=== PATIENT | male | born 1955 | race Caucasian/White ===

== ENCOUNTER 2016-09-20 14:52 | Inpatient (IN) | payer OTHER ==
[2016-09-20 15:05] VITALS: BMI 25.6
--- NOTE | 2016-09-20 19:02 | PDOC ---
History of Present Illness - General Chief Complaint: Pain Stated Complaint: PCP SENT/constipation Time Seen by Provider: 09/20/16 18:11 History Source: [facility] Home Records, Other (staff member) - History of Present Illness Travel History: Yes Initial Comments: 09/20/16 19:02 61-year-old male with history of Down syndrome sent over for evaluation of constipation and to rule out obstruction. As per staff patient has been constipated for the past 2 weeks but has been moving his bowels every 3 days with use of laxatives and enemas. Patient's last LBM was 2 days ago which as per staff was large and solid. Timing/Duration: reports: intermittent Past History - Past Medical History Allergies/Adverse Reactions: Allergies Allergy/AdvReac Type Severity Reaction Status Date / Time guaifenesin [From Robitussin] Allergy Verified 09/20/16 15:04 lactulose Allergy Verified 09/20/16 15:04 levofloxacin [From Levaquin] Allergy Verified 09/20/16 15:04 Home Medications: Ambulatory Orders Levothyroxine [Synthroid -] 75 mcg PO DAILY 07/31/15 Ammonium Lactate Cream [Lac-Hydrin 12% Cream -] 1 applic TP DAILY 05/07/16 Quetiapine Fumarate [Seroquel -] 200 mg PO BID 05/08/16 Nutritional Supplement [Ensure] 1 can PO BID 08/29/16 Risperidone [Risperdal] 2 mg PO HS 08/29/16 Docusate Sodium [Colace -] 100 mg PO TID #90 capsule 09/06/16 Lactulose (Oral Use) [Cephulac -] 20 gm PO Q8H PRN #30 udc 09/06/16 Megestrol Acetate Oral Susp [Megace Oral Suspension -] 400 mg PO BID cup Tolterodine Tartrate LA [Detrol LA -] 4 mg PO DAILY #30 cap.sr.24h 09/15/16 Calcium Carbonate/Vitamin D3 [Oystercal-D 500 mg-400 Unit Tb] 1 each PO BID Cholecalciferol (Vitamin D3) [Vitamin D3] 1,000 unit PO BID 09/20/16 Linaclotide [Linzess] 145 mcg PO DAILY 09/20/16 Mometasone/Formoterol [Dulera 100 Mcg/5 Mcg Inhaler] 2 inh IH BID 09/20/16 Mupirocin Ointment [Bactroban] 1 applic TP PRN 09/20/16 Nortriptyline HCl [Pamelor -] 25 mg PO HS 09/20/16 Paroxetine HCl [Paxil] 40 mg PO DAILY 09/20/16 Anemia: No Asthma: No Cancer: No 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) CVA: No COPD: No CHF: No Dementia: No Diabetes: No GI Disorders: No Disorders: No HTN: No Hypercholesterolemia: No Liver Disease: No Seizures: No Thyroid Disease: Yes (HypoTHYROIDISM, [place]) - Surgical History Abdominal Surgery: No Appendectomy: No Cardiac Surgery: No Cholecystectomy: No Lung Surgery: No Neurologic Surgery: No Orthopedic Surgery: Yes (BONE MARROW RT HIP) - Immunization History Immunization Up to Date: Yes - Psycho/Social/Smoking Cessation Hx Anxiety: No Suicidal Ideation: No Smoking History: Never smoked Have you smoked in the past 12 months: No Information on smoking cessation initiated: No Hx Alcohol Use: No Drug/Substance Use Hx: No Substance Use Type: None Hx Substance Use Treatment: No Patient Lives Alone: No Lives with/in: residential Review of Systems - Review of Systems Able to Perform ROS?: Yes Constitutional: No: Symptoms Reported HEENTM: No: Symptoms Reported Respiratory: No: Symptoms reported Cardiac (ROS): No: Symptoms Reported ABD/GI: Yes: Constipated : No: Symptoms Reported Musculoskeletal: No: Symptoms Reported Integumentary: No: Symptoms Reported *Physical Exam - Vital Signs Last Vital Signs Temp Pulse Resp BP Pulse Ox 98.1 F 103 H 19 99/60 100 09/20/16 15:03 09/20/16 15:03 09/20/16 15:03 09/20/16 15:03 09/20/16 15:03 - Physical Exam General Appearance: Yes: Nourished, Appropriately Dressed. No: Apparent Distress HEENT: positive: EOMI, DONALD. negative: Pale Conjunctivae Neck: positive: Supple Respiratory/Chest: positive: Lungs Clear, Normal Breath Sounds. negative: Respiratory Distress, Accessory Muscle Use Cardiovascular: positive: Regular Rhythm, Regular Rate. negative: Murmur Gastrointestinal/Abdominal: positive: Normal Bowel Sounds, Soft, Distended. negative: Tenderness Musculoskeletal: negative: CVA Tenderness Extremity: positive: Normal Capillary Refill. negative: Pedal Edema Integumentary: positive: Normal Color, Warm, Moist Neurologic: positive: Alert, Motor Strength 5/5 ED Treatment Course - LABORATORY CBC & Chemistry Diagram: 09/20/16 22:00 09/20/16 22:00 - RADIOLOGY Radiology Studies Ordered: Category Date Time Status KUB (KID UR & BLAD) [RAD] Stat Radiology 09/20/16 18:44 Ordered Medical Decision Making - Medical Decision Making 09/20/16 19:11 Pt with history of Down syndrome and MRDD presents with constipation intermittently for the past 2 weeks. Patient here with soft abdomen bowel sounds present 4 with no distention. Patient ordered for a KUB 09/20/16 20:55 X-ray shows visit no definite interval change from September 11. Colonic fecal retention is noted. Several dilated closely grouped bowel loops are again seen within the left mid abdomen probably representing colon. The latter appearances of certain etiology possible to to localize fecal retention, focal obstruction or possible internal hernia case discussed with Dr. Cuba and will admit to [facility]. Patient also ordered for CT and admission labs.. 09/20/16 22:41 Laboratory Tests 09/20/16 09/20/16 22:00 22:00 WBC 9.2 D Hgb 12.1 Hct 37.5 MPV 8.8 Neutrophils % 74.5 INR 1.26 H *DC/Admit/Observation/Transfer Diagnosis at time of Disposition: Down syndrome, Obstruction of colon Constipation Qualifiers: Constipation type: unspecified constipation type Qualified Code(s): K59.00 - Constipation, unspecified - Discharge Dispostion Admit: Yes
--- NOTE | 2016-09-20 20:48 | PDOC ---
*Physical Exam - Vital Signs Last Vital Signs Temp Pulse Resp BP Pulse Ox 98.1 F 103 H 19 99/60 100 09/20/16 15:03 09/20/16 15:03 09/20/16 15:03 09/20/16 15:03 09/20/16 15:03 ED Treatment Course - LABORATORY CBC & Chemistry Diagram: 09/21/16 06:00 09/21/16 06:00 Medical Decision Making - Medical Decision Making 09/20/16 20:48 Pt seen by the Advanced Practice Provider under my direct supervision Ancillary studies reviewed I agree with plan as outlined by the Advanced Practice Provider GLORIA Schreiber *DC/Admit/Observation/Transfer Diagnosis at time of Disposition: Down syndrome, Constipation, Obstruction of colon
[2016-09-20] MEDS ORDERED: risperiDONE 2 MG TABLET PO ONE (21:24)
[2016-09-20] MEDS ORDERED: risperiDONE 0.5 MG TABLET (FP) ONE (21:25)
[2016-09-20] MEDS ORDERED: QUEtiapine FUMARATE 100 MG TABLET (FP) ONE (21:25)
[2016-09-20] MEDS ORDERED: QUEtiapine FUMARATE 200 MG TABLET PO ONE (21:25)
[2016-09-20 22:14] LABS: BASOPHIL 0.6 % (0-2.0); EOSINOPHIL 0.9 % (0-4.5); MCH 30.7 pg (25.7-33.7); MCHC 32.4 g/dl (32.0-35.9); MEAN CELL VOLUME 94.7 fl (80-96); MEAN PLT VOLUME 8.8 fl (7.5-11.1); NEUTROPHILS 74.5 % (42.8-82.8); PLATELET COUNT 202 K/MM3 (134-434); RDW 14.7 % (11.9-15.9); WHITE BLOOD COUNT 9.2 K/mm3 (4.0-10.0)
[2016-09-20 22:35] LABS: INR 1.26 (0.82-1.09); PROTHROMBIN TIME (PATIENT) 13.9 SEC (9.98-11.88)
[2016-09-20 22:47] LABS: ALBUMIN 3.2 g/dl (3.4-5.0); ANION GAP 7 (8-16); BILIRUBIN,TOTAL 0.3 mg/dL (0.2-1.0); CALCIUM 9.6 mg/dL (8.5-10.1); CO2 25 mmol/L (21-32); CREATININE 0.9 mg/dL (0.7-1.3); GLUCOSE,RANDOM 90 mg/dL (74-106); SGPT/ALT 31 U/L (12-78); TOT PROT 6.7 g/dl (6.4-8.2)
[2016-09-20 22:50] LABS: ALK PHOS 65 U/L (45-117); SGOT/AST 23 U/L (15-37)
[2016-09-20] MEDS ORDERED: LORazepam 1 MG TABLET PO ONE (23:29)
[2016-09-21] MEDS ORDERED: LORAZEPAM CARPU-JECT 2 MG/ML DISP.SYRIN ONE (00:38)
[2016-09-21] MEDS ORDERED: LORAZEPAM CARPU-JECT 2 MG/ML DISP.SYRIN IVPUSH ONE (00:45)
[2016-09-21] MEDS ORDERED: LACTULOSE 20 GM/30 ML UDC (FOR ORAL USE ONLY) PO PRN ×2 (01:42→16:39)
--- NOTE | 2016-09-21 01:53 | HP ---
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) - Smoking History Smoking history: Never smoked Have you smoked in the past 12 months: No - Alcohol/Substance Use Hx Alcohol Use: No Home Medications - Allergies Allergies/Adverse Reactions: Allergies Allergy/AdvReac Type Severity Reaction Status Date / Time guaifenesin [From Robitussin] Allergy Verified 09/20/16 15:04 lactulose Allergy Verified 09/20/16 15:04 levofloxacin [From Levaquin] Allergy Verified 09/20/16 15:04 - Home Medications Home Medications: Ambulatory Orders Levothyroxine [Synthroid -] 75 mcg PO DAILY 07/31/15 Ammonium Lactate Cream [Lac-Hydrin 12% Cream -] 1 applic TP DAILY 05/07/16 Quetiapine Fumarate [Seroquel -] 200 mg PO BID 05/08/16 Nutritional Supplement [Ensure] 1 can PO BID 08/29/16 Risperidone [Risperdal] 2 mg PO HS 08/29/16 Docusate Sodium [Colace -] 100 mg PO TID #90 capsule 09/06/16 Lactulose (Oral Use) [Cephulac -] 20 gm PO Q8H PRN #30 udc 09/06/16 Megestrol Acetate Oral Susp [Megace Oral Suspension -] 400 mg PO BID cup Tolterodine Tartrate LA [Detrol LA -] 4 mg PO DAILY #30 cap.sr.24h 09/15/16 Calcium Carbonate/Vitamin D3 [Oystercal-D 500 mg-400 Unit Tb] 1 each PO BID Cholecalciferol (Vitamin D3) [Vitamin D3] 1,000 unit PO BID 09/20/16 Linaclotide [Linzess] 145 mcg PO DAILY 09/20/16 Mometasone/Formoterol [Dulera 100 Mcg/5 Mcg Inhaler] 2 inh IH BID 09/20/16 Mupirocin Ointment [Bactroban] 1 applic TP PRN 09/20/16 Nortriptyline HCl [Pamelor -] 25 mg PO HS 09/20/16 Paroxetine HCl [Paxil] 40 mg PO DAILY 09/20/16 Physical Examination Vital Signs: Vital Signs Temperature 98.1 F 09/20/16 15:03 Pulse Rate 88 09/20/16 19:00 Respiratory Rate 20 09/20/16 19:00 Blood Pressure 100/50 09/20/16 19:00 O2 Sat by Pulse Oximetry (%) 100 09/20/16 19:00
[2016-09-21 07:43] LABS: BASOPHIL 0.8 % (0-2.0); EOSINOPHIL 1.5 % (0-4.5); MCH 31.7 pg (25.7-33.7); MCHC 33.4 g/dl (32.0-35.9); MEAN CELL VOLUME 94.8 fl (80-96); MEAN PLT VOLUME 9.1 fl (7.5-11.1); PLATELET COUNT 150 K/MM3 (134-434); RDW 14.8 % (11.9-15.9); WHITE BLOOD COUNT 4.7 K/mm3 (4.0-10.0)
[2016-09-21] MEDS: LEVOTHYROXINE NA 75 MCG TABLET (FP) PO SCH (07:45)
[2016-09-21] MEDS: DOCUSATE SODIUM 100 MG CAPSULE (FP) PO SCH ×3 (07:45→20:59)
[2016-09-21 08:23] LABS: ALBUMIN 2.6 g/dl (3.4-5.0); ANION GAP 9 (8-16); CALCIUM 8.9 mg/dL (8.5-10.1); CO2 23 mmol/L (21-32); CREATININE 0.7 mg/dL (0.7-1.3); GLUCOSE,RANDOM 84 mg/dL (74-106); SGPT/ALT 28 U/L (12-78)
[2016-09-21 08:25] LABS: ALK PHOS 53 U/L (45-117); BILIRUBIN,TOTAL 0.3 mg/dL (0.2-1.0); TOT PROT 5.5 g/dl (6.4-8.2)
[2016-09-21 08:31] LABS: SGOT/AST 23 U/L (15-37)
[2016-09-21] MEDS ORDERED: NUTRITIONAL SUPPLEMENT PO SCH (10:00)
[2016-09-21] MEDS ORDERED: TOLTERODINE TARTRATE LA 4 MG CAP.SR.24H (FP) PO SCH (10:00)
[2016-09-21] MEDS ORDERED: PATIENT'S OWN MEDICATION (NON-FORMULARY) (Mometasone/Formoterol [Dulera 100 Mcg/5 Mcg Inha IH SCH (10:00)
[2016-09-21] MEDS: PARoxetine HCL 20 MG TABLET (FP) PO SCH (10:22)
[2016-09-21] MEDS: DEXTROSE 5%-0.45% SALINE 1,000 ML IV SCH (10:22)
[2016-09-21] MEDS: MEGESTROL ACETATE 400 MG/10 ML UNIT DOSE CUP PO SCH ×2 (10:22→21:00)
[2016-09-21] MEDS: HEPARIN NA (PORCINE) 5,000 UNITS/ML 1ML VIAL SQ SCH ×2 (10:22→21:50)
[2016-09-21] MEDS: QUEtiapine FUMARATE 200 MG TABLET PO SCH ×2 (10:23→21:49)
--- NOTE | 2016-09-21 12:02 | CONSULT ---
Consult Consult Specialty:: Surgery Reason for Consultation:: abdominal pain, r/o SBO - History of Present Illness Chief Complaint: abdominal pain History of Present Illness: 61-year-old male with history of Down syndrome sent over for evaluation of constipation and to rule out obstruction. As per staff patient has been constipated for the past 2 weeks but has been moving his bowels every 3 days with use of laxatives and enemas. Patient's last LBM was 2 days ago which as per staff was large and solid. 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) - Past Surgical History Past Surgical History: Yes: Hernia Repair (umbilical) - Alcohol/Substance Use Hx Alcohol Use: No - Smoking History Smoking history: Never smoked Have you smoked in the past 12 months: No - Social History Usual Living Arrangement: [facility] Home Medications - Allergies Allergies/Adverse Reactions: Allergies Allergy/AdvReac Type Severity Reaction Status Date / Time guaifenesin [From Robitussin] Allergy Verified 09/20/16 15:04 lactulose Allergy Verified 09/20/16 15:04 levofloxacin [From Levaquin] Allergy Verified 09/20/16 15:04 - Home Medications Home Medications: Ambulatory Orders Levothyroxine [Synthroid -] 75 mcg PO DAILY 07/31/15 Ammonium Lactate Cream [Lac-Hydrin 12% Cream -] 1 applic TP DAILY 05/07/16 Quetiapine Fumarate [Seroquel -] 200 mg PO BID 05/08/16 Nutritional Supplement [Ensure] 1 can PO BID 08/29/16 Risperidone [Risperdal] 2 mg PO HS 08/29/16 Docusate Sodium [Colace -] 100 mg PO TID #90 capsule 09/06/16 Lactulose (Oral Use) [Cephulac -] 20 gm PO Q8H PRN #30 udc 09/06/16 Megestrol Acetate Oral Susp [Megace Oral Suspension -] 400 mg PO BID cup Tolterodine Tartrate LA [Detrol LA -] 4 mg PO DAILY #30 cap.sr.24h 09/15/16 Calcium Carbonate/Vitamin D3 [Oystercal-D 500 mg-400 Unit Tb] 1 each PO BID Cholecalciferol (Vitamin D3) [Vitamin D3] 1,000 unit PO BID 09/20/16 Linaclotide [Linzess] 145 mcg PO DAILY 09/20/16 Mometasone/Formoterol [Dulera 100 Mcg/5 Mcg Inhaler] 2 inh IH BID 09/20/16 Mupirocin Ointment [Bactroban] 1 applic TP PRN 09/20/16 Nortriptyline HCl [Pamelor -] 25 mg PO HS 09/20/16 Paroxetine HCl [Paxil] 40 mg PO DAILY 09/20/16 Review of Systems Unable to obtain ROS, reason: severe mental retardation Physical Exam Vital Signs: Vital Signs Temperature 98.1 F 09/21/16 09:00 Pulse Rate 84 09/21/16 09:00 Respiratory Rate 16 09/21/16 09:00 Blood Pressure 132/62 09/21/16 09:00 O2 Sat by Pulse Oximetry (%) 100 09/21/16 01:46 Constitutional: Yes: No Distress HENT: Yes: Normocephalic Neck: Yes: Supple Cardiovascular: Yes: Regular Rate and Rhythm Respiratory: Yes: CTA Bilaterally Gastrointestinal: Yes: Soft, Other (periumibilical scar well-healed) Labs: CBC, BMP 09/21/16 06:00 09/21/16 06:00 Imaging - Results Cat Scan: Report Reviewed (no SBO), Image Reviewed Problem List - Problems (1) Constipation Code(s): K59.00 - CONSTIPATION, UNSPECIFIED Qualifiers: Constipation type: unspecified constipation type Qualified Code(s): K59.00 - Constipation, unspecified (2) Abdominal pain Code(s): R10.9 - UNSPECIFIED ABDOMINAL PAIN Assessment/Plan Patient has no evidence of bowel obstruction based on clinical and radiologic findings No surgical intervention necessary at this time Agree with GI consult laxatives for constipation and/or enemas for severe constipation
--- NOTE | 2016-09-21 16:26 | CONS ---
DATE OF CONSULTATION: DATE OF DICTATION: 09/21/2016 HISTORY OF PRESENT ILLNESS: Patient was examined earlier this week with urinary incontinence. He is a 61-year-old male with history of Down syndrome and urinary incontinence. Patient also has history of chronic constipation. He has been given laxatives and enemas once or twice a week to get bowel movement. Patient has undergone umbilical hernia surgery repair. A CAT scan of the patient's abdomen and pelvis revealed a moderately distended urinary bladder. There also was a 3.3-cm left renal cyst. There was no evidence of bowel obstruction or other pathology in the abdomen. LABORATORY DATA: The patient's laboratory data revealed a white count of 9200, hemoglobin and hematocrit 12.1/37.5. His platelets were 202. PT and INR were within normal limits with an INR of 1.26. The patient's BUN and creatinine were 28/0.9; again, the patient is afebrile. PHYSICAL EXAMINATION: His pulse is regular. He is uncooperative and sitting in the hallway. Examination of the lower abdomen revealed a distended bladder. The patient refuses to wear a diaper and the sheets are wet. RECOMMENDATION: Would recommend a urodynamic evaluation as well as a cystoscopy if a consent is obtainable. Will follow with you. Maya [id number]
[2016-09-21] MEDS: SODIUM PHOSPHATE/NA BIPHOS 133 ML ENEMA PR SCH ×2 (19:09→21:05)
[2016-09-21] MEDS: risperiDONE 2 MG TABLET PO SCH (21:49)
[2016-09-22] MEDS: DOCUSATE SODIUM 100 MG CAPSULE (FP) PO SCH (07:08)
[2016-09-22] MEDS: LEVOTHYROXINE NA 75 MCG TABLET (FP) PO SCH (07:10)
[2016-09-22] MEDS: SODIUM PHOSPHATE/NA BIPHOS 133 ML ENEMA PR SCH ×2 (08:00→11:01)
[2016-09-22] MEDS: DEXTROSE 5%-0.45% SALINE 1,000 ML IV SCH (08:18)
[2016-09-22] MEDS: PARoxetine HCL 20 MG TABLET (FP) PO SCH (11:00)
[2016-09-22] MEDS: MEGESTROL ACETATE 400 MG/10 ML UNIT DOSE CUP PO SCH ×2 (11:00→21:07)
[2016-09-22] MEDS: HEPARIN NA (PORCINE) 5,000 UNITS/ML 1ML VIAL SQ SCH ×2 (11:01→21:06)
[2016-09-22] MEDS: QUEtiapine FUMARATE 200 MG TABLET PO SCH ×2 (11:03→21:07)
--- NOTE | 2016-09-22 11:40 | CONSULT ---
Consult Consult Specialty:: GI Referred by:: Dr Cuba Reason for Consultation:: Constipation - History of Present Illness Chief Complaint: Patient with severe MR sent from facility for evauation of constipation with possible obstruction History of Present Illness: 61 M with severe MR seen last week in the hospital for the same problem. Treated with lactulose and enemas with success. Now back with ? obstruction. 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) - Past Surgical History Past Surgical History: Yes: Hernia Repair (umbilical) - Alcohol/Substance Use Hx Alcohol Use: No - Smoking History Smoking history: Never smoked Have you smoked in the past 12 months: No - Social History Usual Living Arrangement: [facility] Home Medications - Allergies Allergies/Adverse Reactions: Allergies Allergy/AdvReac Type Severity Reaction Status Date / Time guaifenesin [From Robitussin] Allergy Verified 09/20/16 15:04 lactulose Allergy Verified 09/20/16 15:04 levofloxacin [From Levaquin] Allergy Verified 09/20/16 15:04 - Home Medications Home Medications: Ambulatory Orders Levothyroxine [Synthroid -] 75 mcg PO DAILY 07/31/15 Ammonium Lactate Cream [Lac-Hydrin 12% Cream -] 1 applic TP DAILY 05/07/16 Quetiapine Fumarate [Seroquel -] 200 mg PO BID 05/08/16 Nutritional Supplement [Ensure] 1 can PO BID 08/29/16 Risperidone [Risperdal] 2 mg PO HS 08/29/16 Docusate Sodium [Colace -] 100 mg PO TID #90 capsule 09/06/16 Lactulose (Oral Use) [Cephulac -] 20 gm PO Q8H PRN #30 udc 09/06/16 Megestrol Acetate Oral Susp [Megace Oral Suspension -] 400 mg PO BID cup Tolterodine Tartrate LA [Detrol LA -] 4 mg PO DAILY #30 cap.sr.24h 09/15/16 Calcium Carbonate/Vitamin D3 [Oystercal-D 500 mg-400 Unit Tb] 1 each PO BID Cholecalciferol (Vitamin D3) [Vitamin D3] 1,000 unit PO BID 09/20/16 Linaclotide [Linzess] 145 mcg PO DAILY 09/20/16 Mometasone/Formoterol [Dulera 100 Mcg/5 Mcg Inhaler] 2 inh IH BID 09/20/16 Mupirocin Ointment [Bactroban] 1 applic TP PRN 09/20/16 Nortriptyline HCl [Pamelor -] 25 mg PO HS 09/20/16 Paroxetine HCl [Paxil] 40 mg PO DAILY 09/20/16 Physical Exam-GI Vital Signs: Vital Signs Temperature 97.3 F L 09/22/16 06:00 Pulse Rate 110 H 09/22/16 06:00 Respiratory Rate 18 09/22/16 06:00 Blood Pressure 114/57 09/22/16 06:00 O2 Sat by Pulse Oximetry (%) 100 09/21/16 09:00 Constitutional: Yes: Well Nourished, Mild Distress HENT: Yes: Normocephalic Neck: Yes: Supple Cardiovascular: Yes: Regular Rate and Rhythm Respiratory: Yes: CTA Bilaterally Gastrointestinal Inspection: Yes: Distention (mild) ...Auscultate: Yes: Normoactive Bowel Sounds ...Palpate: Yes: Soft ...Percussion: Yes: Tympanitic Labs: CBC, BMP 09/21/16 06:00 09/21/16 06:00 INR, PTT INR 1.26 (0.82-1.09) H 09/20/16 22:00 Imaging - Results Cat Scan: Report Reviewed (CT done yesterday shows no obstruction. There is no mention of retained stool.) Assessment/Plan Modify bowel regimen. Nurse states passage of small amount of stool. Likely not much stool in colon at this time. There is no evidence of obstruction, either clinically or radiographically. Can likely discharge back to [facility] barring unforeseen circumstances. Continue bowel regimen as ordered.
[2016-09-22] MEDS ORDERED: BISACODYL 5 MG TABLET.DR (FP) PO PRN (11:48)
[2016-09-22] MEDS ORDERED: SODIUM PHOSPHATE/NA BIPHOS 133 ML ENEMA PR ONE (14:15)
[2016-09-22] MEDS ORDERED: PT OWN MED DRAWER 7, Y5N ONE ×2 (18:27→20:56)
--- NOTE | 2016-09-22 19:36 | PN ---
Progress Note, Physician - Current Medication List Current Medications: Active Medications Bisacodyl (Dulcolax -) 5 mg PO DAILY PRN PRN Reason: CONSTIPATION Heparin Sodium (Porcine) (Heparin -) 5,000 unit SQ BID [facility] Last Admin: 09/22/16 11:01 Dose: 5,000 unit Dextrose/Sodium Chloride (D5-1/2ns -) 1,000 mls @ 75 mls/hr IV ASDIR [facility] Last Admin: 09/22/16 08:18 Dose: Not Given Lactulose (Cephulac (Oral Use)) 20 gm PO QID PRN PRN Reason: CONSTIPATION Levothyroxine Sodium (Synthroid -) 75 mcg PO DAILY@0700 [facility] Last Admin: 09/22/16 07:10 Dose: 75 mcg Megestrol Acetate (Megace Oral Suspension -) 400 mg PO BID [facility] Last Admin: 09/22/16 11:00 Dose: 400 mg Non-Formulary Medication (Linaclotide [Linzess]) 145 mcg PO DAILY [facility] Non-Formulary Medication (Mometasone/Formoterol [Dulera 100 Mcg/5 Mcg Inhaler]) 2 inh IH BID [facility] Paroxetine HCl (Paxil -) 40 mg PO DAILY [facility] Last Admin: 09/22/16 11:00 Dose: 40 mg Quetiapine Fumarate (Seroquel -) 200 mg PO BID [facility] Last Admin: 09/22/16 11:03 Dose: 200 mg Risperidone (Risperdal -) 2 mg PO HS [facility] Last Admin: 09/21/16 21:49 Dose: 2 mg - Objective Vital Signs: Vital Signs Temperature 97.8 F 09/22/16 17:04 Pulse Rate 107 H 09/22/16 17:04 Respiratory Rate 18 09/22/16 17:04 Blood Pressure 102/64 09/22/16 17:04 O2 Sat by Pulse Oximetry (%) 100 09/21/16 09:00 Labs: CBC, BMP 09/21/16 06:00 09/21/16 06:00 INR, PTT INR 1.26 (0.82-1.09) H 09/20/16 22:00
[2016-09-22] MEDS: risperiDONE 2 MG TABLET PO SCH (21:07)
[2016-09-23] MEDS: DEXTROSE 5%-0.45% SALINE 1,000 ML IV SCH (04:50)
[2016-09-23] MEDS: LEVOTHYROXINE NA 75 MCG TABLET (FP) PO SCH (06:21)
[2016-09-23] MEDS: PARoxetine HCL 20 MG TABLET (FP) PO SCH (10:03)
[2016-09-23] MEDS: MEGESTROL ACETATE 400 MG/10 ML UNIT DOSE CUP PO SCH ×2 (10:03→22:15)
[2016-09-23] MEDS: QUEtiapine FUMARATE 200 MG TABLET PO SCH ×2 (10:03→21:39)
[2016-09-23] MEDS: HEPARIN NA (PORCINE) 5,000 UNITS/ML 1ML VIAL SQ SCH ×2 (10:04→21:37)
--- NOTE | 2016-09-23 16:13 | PN ---
Progress Note, Physician History of Present Illness: No new change - Current Medication List Current Medications: Active Medications Bisacodyl (Dulcolax -) 5 mg PO DAILY PRN PRN Reason: CONSTIPATION Heparin Sodium (Porcine) (Heparin -) 5,000 unit SQ BID [facility] Last Admin: 09/23/16 10:04 Dose: Not Given Lactulose (Cephulac (Oral Use)) 20 gm PO QID PRN PRN Reason: CONSTIPATION Levothyroxine Sodium (Synthroid -) 75 mcg PO DAILY@0700 [facility] Last Admin: 09/23/16 06:21 Dose: 75 mcg Megestrol Acetate (Megace Oral Suspension -) 400 mg PO BID [facility] Last Admin: 09/23/16 10:03 Dose: Not Given Non-Formulary Medication (Linaclotide [Linzess]) 145 mcg PO DAILY [facility] Non-Formulary Medication (Mometasone/Formoterol [Dulera 100 Mcg/5 Mcg Inhaler]) 2 inh IH BID [facility] Paroxetine HCl (Paxil -) 40 mg PO DAILY [facility] Last Admin: 09/23/16 10:03 Dose: Not Given Quetiapine Fumarate (Seroquel -) 200 mg PO BID [facility] Last Admin: 09/23/16 10:03 Dose: Not Given Risperidone (Risperdal -) 2 mg PO [facility] - Objective Vital Signs: Vital Signs Temperature 97.6 F 09/23/16 15:02 Pulse Rate 104 H 09/23/16 15:02 Respiratory Rate 18 09/23/16 15:02 Blood Pressure 104/75 09/23/16 15:02 O2 Sat by Pulse Oximetry (%) 100 09/23/16 09:00 Constitutional: Yes: No Distress, Pallor Neck: Yes: Supple Cardiovascular: Yes: WNL, Regular Rate and Rhythm Respiratory: Yes: WNL, Regular, CTA Bilaterally Gastrointestinal: Yes: WNL, Normal Bowel Sounds, Soft Labs: CBC, BMP 09/21/16 06:00 09/21/16 06:00 INR, PTT INR 1.26 (0.82-1.09) H 09/20/16 22:00 Problem List - Problems (1) Constipation Assessment/Plan: Cont bowel regimen w/ lactulose/linzess/dulcolax Enemas prn DC planning Code(s): K59.00 - CONSTIPATION, UNSPECIFIED Qualifiers: Constipation type: unspecified constipation type Qualified Code(s): K59.00 - Constipation, unspecified (2) Down syndrome Assessment/Plan: Pt may need higher level of care Code(s): Q90.9 - DOWN SYNDROME, UNSPECIFIED (3) Hypothyroidism Assessment/Plan: Will increase synthroid and repeat TSH in 6 weeks Code(s): E03.9 - HYPOTHYROIDISM, UNSPECIFIED Qualifiers: Hypothyroidism type: unspecified Qualified Code(s): E03.9 - Hypothyroidism, unspecified (4) Unsteady gait Code(s): R26.81 - UNSTEADINESS ON FEET Assessment/Plan 1. Urinary retention As per uro pt needs urodynamic eval/cystoscopy Will need to get consent
[2016-09-23] MEDS ORDERED: LORAZEPAM CARPU-JECT 2 MG/ML DISP.SYRIN ONE (19:39)
[2016-09-23] MEDS ORDERED: LORAZEPAM CARPU-JECT 2 MG/ML DISP.SYRIN IM STA (19:46)
[2016-09-23] MEDS ORDERED: PT OWN MED DRAWER 7, Y5N ONE (20:18)
[2016-09-23] MEDS: risperiDONE 1 MG TABLET (FP) PO SCH (21:37)
[2016-09-23] MEDS: PATIENT'S OWN MEDICATION (NON-FORMULARY) (Linaclotide [Linzess] 145 MCG) PO SCH (22:21)
[2016-09-24] MEDS: LEVOTHYROXINE NA 100 MCG TABLET (FP) PO SCH (06:47)
[2016-09-24] MEDS ORDERED: PT OWN MED DRAWER 7, Y5N ONE (09:08)
[2016-09-24] MEDS: PARoxetine HCL 20 MG TABLET (FP) PO SCH (09:10)
[2016-09-24] MEDS: HEPARIN NA (PORCINE) 5,000 UNITS/ML 1ML VIAL SQ SCH ×2 (09:10→21:33)
[2016-09-24] MEDS: MEGESTROL ACETATE 400 MG/10 ML UNIT DOSE CUP PO SCH ×2 (09:10→21:32)
[2016-09-24] MEDS: PATIENT'S OWN MEDICATION (NON-FORMULARY) (Linaclotide [Linzess] 145 MCG) PO SCH (09:11)
[2016-09-24] MEDS: QUEtiapine FUMARATE 200 MG TABLET PO SCH ×2 (09:12→21:33)
--- NOTE | 2016-09-24 20:10 | PN ---
Progress Note, Physician History of Present Illness: Pt was very agitated last pm and needed ativan - Current Medication List Current Medications: Active Medications Bisacodyl (Dulcolax -) 5 mg PO DAILY PRN PRN Reason: CONSTIPATION Last Admin: 09/24/16 09:10 Dose: 5 mg Heparin Sodium (Porcine) (Heparin -) 5,000 unit SQ BID [facility] Last Admin: 09/24/16 09:10 Dose: 5,000 unit Lactulose (Cephulac (Oral Use)) 20 gm PO QID PRN PRN Reason: CONSTIPATION Levothyroxine Sodium (Synthroid -) 100 mcg PO DAILY@0700 [facility] Last Admin: 09/24/16 06:47 Dose: Not Given Megestrol Acetate (Megace Oral Suspension -) 400 mg PO BID [facility] Last Admin: 09/24/16 09:10 Dose: 400 mg Non-Formulary Medication (Linaclotide [Linzess]) 145 mcg PO DAILY [facility] Last Admin: 09/24/16 09:11 Dose: 145 mcg Non-Formulary Medication (Mometasone/Formoterol [Dulera 100 Mcg/5 Mcg Inhaler]) 2 inh IH BID [facility] Paroxetine HCl (Paxil -) 40 mg PO DAILY [facility] Last Admin: 09/24/16 09:10 Dose: 40 mg Quetiapine Fumarate (Seroquel -) 200 mg PO BID [facility] Last Admin: 09/24/16 09:12 Dose: 200 mg Risperidone (Risperdal -) 2 mg PO HS [facility] Last Admin: 09/23/16 21:37 Dose: 2 mg - Objective Vital Signs: Vital Signs Temperature 97.7 F 09/24/16 09:00 Pulse Rate 110 H 09/24/16 09:00 Respiratory Rate 18 09/24/16 09:00 Blood Pressure 115/60 09/24/16 09:00 O2 Sat by Pulse Oximetry (%) 100 09/24/16 09:00 Constitutional: Yes: No Distress, Pallor Cardiovascular: Yes: WNL, Regular Rate and Rhythm Respiratory: Yes: WNL, Regular, CTA Bilaterally Gastrointestinal: Yes: WNL, Normal Bowel Sounds, Soft Labs: CBC, BMP 09/21/16 06:00 09/21/16 06:00 INR, PTT INR 1.26 (0.82-1.09) H 12/29/16 22:00 Problem List - Problems (1) Constipation Assessment/Plan: Cont bowel regimen w/ lactulose/linzess/dulcolax Enemas prn DC planning for am Code(s): K59.00 - CONSTIPATION, UNSPECIFIED Qualifiers: Constipation type: unspecified constipation type Qualified Code(s): K59.00 - Constipation, unspecified (2) Down syndrome Assessment/Plan: Pt may need higher level of care Code(s): Q90.9 - DOWN SYNDROME, UNSPECIFIED (3) Hypothyroidism Assessment/Plan: Synthroid dose increased Check TSH level in 6 weeks Code(s): E03.9 - HYPOTHYROIDISM, UNSPECIFIED Qualifiers: Hypothyroidism type: unspecified Qualified Code(s): E03.9 - Hypothyroidism, unspecified (4) Unsteady gait Code(s): R26.81 - UNSTEADINESS ON FEET Assessment/Plan 1. Urinary retention As per uro pt needs urodynamic eval/cystoscopy Will need to get consent Wc can be done as outpt
[2016-09-24] MEDS: risperiDONE 1 MG TABLET (FP) PO SCH (21:33)
[2016-09-25] MEDS: LEVOTHYROXINE NA 100 MCG TABLET (FP) PO SCH (06:49)
--- NOTE | 2016-09-25 07:52 | PN ---
Progress Note (short form) - Note Progress Note: Patient clinically unchanged Nurse states bowel habits have normalized Can discharge from GI POV To maintain bowel regimen as opt
[2016-09-25 11:00] VITALS: BP 111/60; PULSE 100
[2016-09-25] MEDS: PARoxetine HCL 20 MG TABLET (FP) PO SCH (11:11)
[2016-09-25] MEDS: MEGESTROL ACETATE 400 MG/10 ML UNIT DOSE CUP PO SCH (11:11)
[2016-09-25] MEDS: HEPARIN NA (PORCINE) 5,000 UNITS/ML 1ML VIAL SQ SCH (11:11)
[2016-09-25] MEDS: PATIENT'S OWN MEDICATION (NON-FORMULARY) (Linaclotide [Linzess] 145 MCG) PO SCH (11:11)
[2016-09-25] MEDS: QUEtiapine FUMARATE 200 MG TABLET PO SCH (11:11)
[2016-09-25 14:19] VITALS: TEMP 98.8
[2016-09-25] MEDS ORDERED: PT OWN MED DRAWER 7, Y5N ONE (16:57)
== END 2016-09-25 17:37 | disposition home or self-care (01) | DRG 392 ==
LOC: JER 14:52 → JERBED 21:00 → UNDOADMIN 22:11 → JERBED 22:11 → J8W 09-21 01:42 → JERBED 09-21 01:42
PROVIDERS: ADMIT Internal Medicine; ATTEND Internal Medicine
DX: K59.00 Constipation, unspecified (principal); Q90.9 Down syndrome, unspecified; F71 Moderate intellectual disabilities; E03.9 Hypothyroidism, unspecified; R26.81 Unsteadiness on feet; R33.9 Retention of urine, unspecified; R10.9 Unspecified abdominal pain
CPT/HCPCS: 36415; 74000-TC; 74176-TC; 80053; 82378; 84443; 85025; 85610; 86850; 86900; 86901; 97001-GP; 99284-25; J1644; J2794

== ENCOUNTER 2016-09-27 17:46 | Emergency (ER) | payer OTHER ==
[2016-09-27 18:12] VITALS: TEMP 97.5; BMI 27.8
--- NOTE | 2016-09-27 20:28 | PDOC ---
History of Present Illness - General Chief Complaint: Weakness Stated Complaint: WEAKNESS Time Seen by Provider: 09/27/16 18:14 History Source: Care Provider - History of Present Illness Initial Comments: 09/28/16 02:09 Patient was seen and evaluated by me immediately upon arrival. This H&P is being recorded post discharge. Patient's 61-year-old patient's with advanced mental retardation, multiple comorbidities referred and I will do that to the ER for inability to walk and lower extremity muscle weakness due to prolonged immobilization. Patient recently been seen and evaluated in this hospital for suspected SBO and was discharged 48 hours prior to current visit. No trauma is reported. No fever or chills or endorsed by the pathology laboratory director. Patient tolerates by mouth. Patient is unable to cooperate with detailed H&P at this time. REVIEW OF SYSTEMS Unable to obtain EXAMINATION CONSTITUTIONAL: Alert and awake, nonverbal, follows simple commands, in no apparent distress HEAD: Normocephalic; atraumatic EYES: PERRL; ENMT: External appears normal; NECK: Supple; non-tender; no cervical lymphadenopathy CARD: Normal S1, S2; no murmurs, rubs, or gallops RESP: Normal chest excursion with respiration; breath sounds clear and equal bilaterally; no wheezes, rhonchi, or rales ABD: Soft, non-distended; non-tender; no palpable organomegaly, no palpable hernias EXT: Normal ROM in all four extremities; non-tender to palpation; distal pulses intact; gait-stable SKIN: Warm, dry, no rash NEURO: Awake and alert, moving all tremors symmetrically, Past History - Past Medical History Allergies/Adverse Reactions: Allergies Allergy/AdvReac Type Severity Reaction Status Date / Time guaifenesin [From Robitussin] Allergy Verified 09/27/16 18:09 lactulose Allergy Verified 09/27/16 18:09 levofloxacin [From Levaquin] Allergy Verified 09/27/16 18:09 Home Medications: Ambulatory Orders Levothyroxine [Synthroid -] 75 mcg PO DAILY 07/31/15 Ammonium Lactate Cream [Lac-Hydrin 12% Cream -] 1 applic TP DAILY 05/07/16 Quetiapine Fumarate [Seroquel -] 200 mg PO BID 05/08/16 Nutritional Supplement [Ensure] 1 can PO BID 08/29/16 Risperidone [Risperdal] 2 mg PO HS 08/29/16 Megestrol Acetate Oral Susp [Megace Oral Suspension -] 400 mg PO BID cup Calcium Carbonate/Vitamin D3 [Oystercal-D 500 mg-400 Unit Tb] 1 each PO BID Cholecalciferol (Vitamin D3) [Vitamin D3] 1,000 unit PO BID 09/20/16 Linaclotide [Linzess] 145 mcg PO DAILY 09/20/16 Mometasone/Formoterol [Dulera 100 Mcg/5 Mcg Inhaler] 2 inh IH BID 09/20/16 Mupirocin Ointment [Bactroban 2% Ointment -] 1 applic TP PRN 09/20/16 Nortriptyline HCl [Pamelor -] 25 mg PO HS 09/20/16 Paroxetine HCl [Paxil] 40 mg PO DAILY 09/20/16 Folic Acid 1 mg PO DAILY 09/27/16 Anemia: No 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) Thyroid Disease: Yes (HypoTHYROIDISM, KOLTON) - Surgical History Orthopedic Surgery: Yes (BONE MARROW RT HIP) - Immunization History Immunization Up to Date: Yes - Psycho/Social/Smoking Cessation Hx Anxiety: No Suicidal Ideation: No Smoking History: Never smoked Have you smoked in the past 12 months: No Hx Alcohol Use: No Drug/Substance Use Hx: No Substance Use Type: None Hx Substance Use Treatment: No *Physical Exam - Vital Signs Last Vital Signs Temp Pulse Resp BP Pulse Ox 97.5 F L 80 18 134/100 99 09/27/16 18:09 09/27/16 18:09 09/27/16 18:09 09/27/16 18:09 09/27/16 18:09 Medical Decision Making - Medical Decision Making 09/28/16 02:13 Patient is a 61-year-old male with history of advanced mental retardation who presented with lower extremity weakness and inability to ambulate at the facility where he resides. In the ER, patient is able to follow commands and ambulate without difficulty with encouragement from the M.D. No acute issues are present. I discussed the case with the RN caring for the patient. Will recommend in-house physical therapy. Will discharge. *DC/Admit/Observation/Transfer Diagnosis at time of Disposition: Weakness - Referrals Referrals: pmd, as needed [Other] - Patient Instructions Printed Discharge Instructions: DI for Muscle Weakness - Post Discharge Activity Activity Comments: 09/27/16 20:27 please consider physical therapy as needed for this patient.
[2016-09-27 20:30] VITALS: BP 134/94; PULSE 82
== END 2016-09-27 20:29 | disposition home or self-care (01) ==
LOC: JER 17:46
DX: M62.81 Muscle weakness (generalized) (principal); F72 Severe intellectual disabilities; I34.1 Nonrheumatic mitral (valve) prolapse; E03.9 Hypothyroidism, unspecified; E06.3 Autoimmune thyroiditis
CPT/HCPCS: 99283-25

== ENCOUNTER 2016-10-26 12:12 | Inpatient (IN) | payer OTHER ==
--- NOTE | 2016-10-26 13:59 | PDOC ---
History of Present Illness - General History Source: Care Provider, Longterm Records Exam Limitations: Dementia, Other (developmental delay) <Basil Ruth - Last Filed: 10/26/16 17:20> <Magaly Chew - Last Filed: 10/30/16 09:46> - General Chief Complaint: Constipation Stated Complaint: CONSTIPATION Time Seen by Provider: 10/26/16 13:07 Past History - Past Medical History Anemia: No 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) Thyroid Disease: Yes (HypoTHYROIDISM, KOL[place]) Other medical history: MODERATE MR, IMPULSE CONTROL DISORDER - Surgical History Orthopedic Surgery: Yes (BONE MARROW RT HIP) - Immunization History Immunization Up to Date: Yes - Psycho/Social/Smoking Cessation Hx Anxiety: No Suicidal Ideation: No Smoking History: Never smoked Have you smoked in the past 12 months: No Hx Alcohol Use: No Drug/Substance Use Hx: No Substance Use Type: None Hx Substance Use Treatment: No <Basil Ruth - Last Filed: 10/26/16 17:20> <Magaly Chew - Last Filed: 10/30/16 09:46> - Past Medical History Allergies/Adverse Reactions: Allergies Allergy/AdvReac Type Severity Reaction Status Date / Time guaifenesin [From Robitussin] Allergy Verified 10/26/16 12:32 lactulose Allergy Verified 10/26/16 12:32 levofloxacin [From Levaquin] Allergy Verified 10/26/16 12:32 Home Medications: Ambulatory Orders Levothyroxine [Synthroid -] 75 mcg PO DAILY 07/31/15 Ammonium Lactate Cream [Lac-Hydrin 12% Cream -] 1 applic TP DAILY 05/07/16 Quetiapine Fumarate [Seroquel -] 200 mg PO BID 05/08/16 Nutritional Supplement [Ensure] 1 can PO BID 08/29/16 Risperidone [Risperdal] 2 mg PO HS 08/29/16 Megestrol Acetate Oral Susp [Megace Oral Suspension -] 400 mg PO BID cup Calcium Carbonate/Vitamin D3 [Oystercal-D 500 mg-400 Unit Tb] 1 each PO BID Cholecalciferol (Vitamin D3) [Vitamin D3] 1,000 unit PO BID 09/20/16 Linaclotide [Linzess] 145 mcg PO DAILY 09/20/16 Mometasone/Formoterol [Dulera 100 Mcg/5 Mcg Inhaler] 2 inh IH BID 09/20/16 Nortriptyline HCl [Pamelor -] 25 mg PO HS 09/20/16 Paroxetine HCl [Paxil] 40 mg PO DAILY 09/20/16 Folic Acid 1 mg PO DAILY 09/27/16 Apixaban [Eliquis] 5 mg PO BID 10/26/16 Review of Systems - Review of Systems Able to Perform ROS?: No <Basil Ruth - Last Filed: 10/26/16 17:20> *Physical Exam - Vital Signs Last Vital Signs Temp Pulse Resp BP Pulse Ox 97.8 F 109 H 17 144/95 96 10/26/16 12:32 10/26/16 12:32 10/26/16 12:32 10/26/16 12:32 10/26/16 12:32 - Physical Exam General Appearance: Yes: Appropriately Dressed. No: Apparent Distress Respiratory/Chest: negative: Respiratory Distress Gastrointestinal/Abdominal: positive: Normal Bowel Sounds, Soft. negative: Distended, Hernia, Mass Integumentary: positive: Dry, Warm Neurologic: positive: Alert <Basil Ruth - Last Filed: 10/26/16 17:20> - Vital Signs Last Vital Signs Temp Pulse Resp BP Pulse Ox 98.9 F 96 H 20 107/64 100 10/30/16 05:54 10/30/16 05:54 10/30/16 05:54 10/30/16 05:54 10/29/16 21:00 <Magaly Chew - Last Filed: 10/30/16 09:46> ED Treatment Course - LABORATORY CBC & Chemistry Diagram: 10/26/16 14:29 10/26/16 14:29 - RADIOLOGY Radiology Studies Ordered: Category Date Time Status ABDOMEN-KUB FLAT PLATE [RAD] Stat Radiology 10/26/16 13:08 Ordered <Basil Ruth - Last Filed: 10/26/16 17:20> - LABORATORY CBC & Chemistry Diagram: 10/27/16 06:00 10/27/16 06:00 - ADDITIONAL ORDERS Additional order review: 10/26/16 14:29 RBC 3.52 L MCV 94.8 MCHC 32.7 RDW 16.2 H MPV 8.8 Neutrophils % 76.6 Lymphocytes % 12.8 D Monocytes % 9.2 Eosinophils % 0.5 Basophils % 0.9 - Medications Given in the ED: ED Medications Discontinued Medications Generic Name Dose Route Start Last Admin Trade Name Ishmael PRN Reason Stop Dose Admin Ketamine HCl 50 mg 10/26/16 15:13 10/26/16 15:30 Ketalar - IV 10/26/16 15:14 50 mg ONCE ONE Administration Non-Formulary Medication 2 inh 10/27/16 10:00 10/30/16 08:09 Mometasone/Formoterol [Dulera 100 Mcg/5 Mcg Inhaler] IH Not Given BID BILL Nortriptyline HCl 25 mg 10/27/16 22:00 10/27/16 22:16 Pamelor - PO 25 mg HS BILL Administration Polyethylene Glycol 255 gm 10/28/16 14:00 10/28/16 15:46 Miralax (For Bowel Prep) - PO 10/28/16 14:01 1 bottle ONCE ONE Administration Quetiapine Fumarate 200 mg 10/27/16 10:00 10/28/16 10:54 Seroquel - PO Not Given BID BILL Senna 1 tab 10/27/16 22:00 10/27/16 22:15 Senna - PO 1 tab HS BILL Administration <Magaly Chew - Last Filed: 10/30/16 09:46> Medical Decision Making - Medical Decision Making 10/26/16 13:56 61 yo M, h/o trisomy 21, dementia, spinal stenosis, recent dx of RLE DVT, currently on enoxaparin, constipation, sent in by PMD for constipation though as per caretakers, pt currently on bowel regimen at [facility]-way and had normal BM 2 days ago. No vomiting or fever. Pt in NAD and stable w/ soft, ND abd w/ + BS. Will contact PMD to discuss dispo 10/26/16 14:14 10/26/16 15:[address] 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 States patient was sent in for workup including CAT scan and admission. States while patient admitted, will try to place in jail as feels that half-way not able to care for pt any longer 10/26/16 16:42 10/26/16 17:21 Significant stool w/ colonic dilatation above splenic flexure on CT, no obstruction. Pt currently has ready bed 10/26/16 17:22 <Basil Ruth - Last Filed: 10/26/16 17:20> *DC/Admit/Observation/Transfer - Discharge Dispostion Admit: Yes <Basil Ruth - Last Filed: 10/26/16 17:20> - Attestations Physician Attestion: I reviewed the case with the mid-level practitioner and agree with the mid- level practitioner's assessment, diagnosis and disposition. <Magaly Chew - Last Filed: 10/30/16 09:46> Diagnosis at time of Disposition: Constipation Qualifiers: Constipation type: unspecified constipation type Qualified Code(s): K59.00 - Constipation, unspecified - Discharge Dispostion Condition at time of disposition: Stable
[2016-10-26 14:36] LABS: BASOPHIL 0.9 % (0-2.0); EOSINOPHIL 0.5 % (0-4.5); MCHC 32.7 g/dl (32.0-35.9); MEAN CELL VOLUME 94.8 fl (80-96); MEAN PLT VOLUME 8.8 fl (7.5-11.1); NEUTROPHILS 76.6 % (42.8-82.8); PLATELET COUNT 221 K/MM3 (134-434); RDW 16.2 % (11.9-15.9); WHITE BLOOD COUNT 5.3 K/mm3 (4.0-10.0)
[2016-10-26 15:04] LABS: ALBUMIN 2.8 g/dl (3.4-5.0); ANION GAP 8 (8-16); BILIRUBIN,TOTAL 0.2 mg/dL (0.2-1.0); CALCIUM 10.3 mg/dL (8.5-10.1); CO2 27 mmol/L (21-32); GLUCOSE,RANDOM 92 mg/dL (74-106); SGPT/ALT 23 U/L (12-78); TOT PROT 6.5 g/dl (6.4-8.2)
[2016-10-26 15:05] LABS: ALK PHOS 76 U/L (45-117)
[2016-10-26 15:07] LABS: SGOT/AST 23 U/L (15-37)
[2016-10-26] MEDS ORDERED: KETAMINE HCL 500 MG/10 ML VIAL IV ONE (15:13)
[2016-10-26] MEDS ORDERED: KETAMINE HCL 200 MG/20 ML VIAL ONE (15:22)
[2016-10-26 16:55] VITALS: BMI 27.4
[2016-10-26 17:54] LABS: URINE APPEARANCE CLOUDY; URINE BILIRUBIN NEGATIVE (NEGATIVE); URINE COLOR YELLOW; URINE GLUCOSE (UA) NEGATIVE (NEGATIVE); URINE KETONE NEGATIVE (NEGATIVE); URINE NITRITE NEGATIVE (NEGATIVE); URINE UROBILINOGEN NEGATIVE E.U./dl (0.2-1.0)
[2016-10-26 18:00] LABS: URINE BLOOD 3+ (NEGATIVE); URINE LEUK ESTERASE 3+ (NEGATIVE); URINE PROTEIN 1+ (NEGATIVE)
[2016-10-26 18:21] LABS: URINE BACTERIA MODERATE /hpf (NONE SEEN); URINE HYALINE CAST 7 /lpf; URINE MUCUS RARE; URINE RBC 188 /hpf (0-3); URINE WBC 106 /hpf (3-5)
[2016-10-27] MEDS: LEVOTHYROXINE NA 75 MCG TABLET (FP) PO SCH (06:36)
[2016-10-27] MEDS: DOCUSATE SODIUM 100 MG CAPSULE (FP) PO SCH ×3 (06:36→22:15)
[2016-10-27 08:24] LABS: BASOPHIL 0.8 % (0-2.0); EOSINOPHIL 1.3 % (0-4.5); MCH 31.3 pg (25.7-33.7); MCHC 33.1 g/dl (32.0-35.9); MEAN CELL VOLUME 94.4 fl (80-96); NEUTROPHILS 68.4 % (42.8-82.8); PLATELET COUNT 207 K/MM3 (134-434); WHITE BLOOD COUNT 4.3 K/mm3 (4.0-10.0)
[2016-10-27] MEDS ORDERED: PARoxetine HCL 10 MG TABLET (FP) ONE (08:42)
[2016-10-27] MEDS ORDERED: PT OWN MED DRAWER 7, Y5N ONE ×2 (08:43→21:43)
[2016-10-27] MEDS: MEGESTROL ACETATE 400 MG/10 ML UNIT DOSE CUP PO SCH ×2 (09:04→22:16)
[2016-10-27 09:05] LABS: ALBUMIN 2.5 g/dl (3.4-5.0); ANION GAP 9 (8-16); BILIRUBIN,TOTAL 0.2 mg/dL (0.2-1.0); CALCIUM 9.4 mg/dL (8.5-10.1); CO2 25 mmol/L (21-32); CREATININE 0.9 mg/dL (0.7-1.3); GLUCOSE,RANDOM 78 mg/dL (74-106); SGOT/AST 13 U/L (15-37); SGPT/ALT 18 U/L (12-78); TOT PROT 5.7 g/dl (6.4-8.2)
[2016-10-27] MEDS: APIXABAN 5 MG TABLET PO SCH ×2 (09:05→22:15)
[2016-10-27] MEDS: CHOLECALCIFEROL (VITAMIN D3) 1,000 UNIT TABLET (FP) PO SCH ×2 (09:05→22:15)
[2016-10-27] MEDS: QUEtiapine FUMARATE 100 MG TABLET (FP) PO SCH (09:05)
[2016-10-27] MEDS: PARoxetine HCL 20 MG TABLET (FP) PO SCH (09:05)
[2016-10-27 09:06] LABS: ALK PHOS 67 U/L (45-117)
[2016-10-27] MEDS: FOLIC ACID 1 MG TABLET (FP) PO SCH (09:06)
[2016-10-27] MEDS ORDERED: PATIENT'S OWN MEDICATION (NON-FORMULARY) (Linaclotide [Linzess] 145 MCG) PO SCH (10:00)
[2016-10-27] MEDS ORDERED: NUTRITIONAL SUPPLEMENT PO SCH (10:00)
--- NOTE | 2016-10-27 14:21 | HP ---
Admitting History and Physical - Admission Chief Complaint: Constipation/abdominal pain History of Present Illness: Pt is a 61 y/o male w/ PMH significant for Down's syndrome, dementia, spinal stenosis, DVT and chronic constipation w/ fecal impaction. Pt has had multiple admission in the past few months including a recent one at [facility]. Pt lives in an adult home and has become more immobile and essentially wheelchair bound. Pt now sent from adult home due to constipation w/ abdominal pain. 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 (Mental retardation) Gastrointestinal: Yes: Constipation, Other (Fecal impaction) Musculoskeletal: Yes: Other (Spinal stenosis) - Past Surgical History Past Surgical History: Yes: Hernia Repair (umbilical) - Smoking History Smoking history: Never smoked Have you smoked in the past 12 months: No - Alcohol/Substance Use Hx Alcohol Use: No Home Medications - Allergies Allergies/Adverse Reactions: Allergies Allergy/AdvReac Type Severity Reaction Status Date / Time guaifenesin [From Robitussin] Allergy Verified 10/26/16 12:32 lactulose Allergy Verified 10/26/16 12:32 levofloxacin [From Levaquin] Allergy Verified 10/26/16 12:32 - Home Medications Home Medications: Ambulatory Orders Levothyroxine [Synthroid -] 75 mcg PO DAILY 07/31/15 Ammonium Lactate Cream [Lac-Hydrin 12% Cream -] 1 applic TP DAILY 05/07/16 Quetiapine Fumarate [Seroquel -] 200 mg PO BID 05/08/16 Nutritional Supplement [Ensure] 1 can PO BID 08/29/16 Risperidone [Risperdal] 2 mg PO HS 08/29/16 Megestrol Acetate Oral Susp [Megace Oral Suspension -] 400 mg PO BID cup Calcium Carbonate/Vitamin D3 [Oystercal-D 500 mg-400 Unit Tb] 1 each PO BID Cholecalciferol (Vitamin D3) [Vitamin D3] 1,000 unit PO BID 09/20/16 Linaclotide [Linzess] 145 mcg PO DAILY 09/20/16 Mometasone/Formoterol [Dulera 100 Mcg/5 Mcg Inhaler] 2 inh IH BID 09/20/16 Nortriptyline HCl [Pamelor -] 25 mg PO HS 09/20/16 Paroxetine HCl [Paxil] 40 mg PO DAILY 09/20/16 Folic Acid 1 mg PO DAILY 09/27/16 Apixaban [Eliquis] 5 mg PO BID 10/26/16 Family Disease History - Family Disease History Family History: Unable to Obtain Review of Systems Unable to obtain ROS, reason: Dementia and mental retar Physical Examination Vital Signs: Vital Signs Temperature 99.5 F 10/26/16 22:00 Pulse Rate 110 H 10/26/16 22:00 Respiratory Rate 20 10/26/16 22:00 Blood Pressure 114/74 10/26/16 22:00 O2 Sat by Pulse Oximetry (%) 96 10/26/16 21:00 Constitutional: Yes: Well Nourished Neck: Yes: Supple Cardiovascular: Yes: WNL, Regular Rate and Rhythm Respiratory: Yes: WNL, Regular, CTA Bilaterally Gastrointestinal: Yes: Distention, Other (Diminshed BS) Extremities: Yes: WNL Labs: CBC, BMP 10/27/16 06:00 10/27/16 06:00 Problem List - Problems (1) Mental retardation Code(s): F79 - UNSPECIFIED INTELLECTUAL DISABILITIES (2) Abdominal pain Assessment/Plan: Constipation vs fecal impaction Cont present bowel regimen GI consult Code(s): R10.9 - UNSPECIFIED ABDOMINAL PAIN (3) Down syndrome Code(s): Q90.9 - DOWN SYNDROME, UNSPECIFIED (4) Unsteady gait Assessment/Plan: PT eval Code(s): R26.81 - UNSTEADINESS ON FEET (5) Hypothyroidism Assessment/Plan: Cont levothyroxine Code(s): E03.9 - HYPOTHYROIDISM, UNSPECIFIED Qualifiers: Hypothyroidism type: unspecified Qualified Code(s): E03.9 - Hypothyroidism, unspecified
[2016-10-27] MEDS: AMMONIUM LACTATE 12% CREAM 140 GM TUBE TP SCH (16:29)
[2016-10-27] MEDS ORDERED: SENNOSIDES 8.6MG TABLET (FP) PO SCH (22:00)
[2016-10-27] MEDS: risperiDONE 2 MG TABLET PO SCH (22:00)
[2016-10-27] MEDS ORDERED: NORTRIPTYLINE HCL 25 MG CAPSULE PO SCH (22:00)
[2016-10-27] MEDS: CALCIUM 500MG/VIT-D 200 UNITS COMBO TABLET (FP) PO SCH (22:15)
[2016-10-28] MEDS: LEVOTHYROXINE NA 75 MCG TABLET (FP) PO SCH (06:15)
[2016-10-28] MEDS: DOCUSATE SODIUM 100 MG CAPSULE (FP) PO SCH ×3 (06:15→21:51)
[2016-10-28] MEDS ORDERED: PARoxetine HCL 10 MG TABLET (FP) ONE (10:50)
[2016-10-28] MEDS ORDERED: PT OWN MED DRAWER 7, Y5N ONE ×2 (10:51→21:11)
[2016-10-28] MEDS: MEGESTROL ACETATE 400 MG/10 ML UNIT DOSE CUP PO SCH ×2 (10:51→21:51)
[2016-10-28] MEDS: CALCIUM 500MG/VIT-D 200 UNITS COMBO TABLET (FP) PO SCH ×2 (10:52→21:51)
[2016-10-28] MEDS: FOLIC ACID 1 MG TABLET (FP) PO SCH (10:52)
[2016-10-28] MEDS: APIXABAN 5 MG TABLET PO SCH ×2 (10:52→21:50)
[2016-10-28] MEDS: CHOLECALCIFEROL (VITAMIN D3) 1,000 UNIT TABLET (FP) PO SCH ×2 (10:52→21:53)
[2016-10-28] MEDS: AMMONIUM LACTATE 12% CREAM 140 GM TUBE TP SCH (10:53)
[2016-10-28] MEDS: PARoxetine HCL 20 MG TABLET (FP) PO SCH (10:53)
[2016-10-28] MEDS: QUEtiapine FUMARATE 100 MG TABLET (FP) PO SCH ×2 (10:54→21:53)
--- NOTE | 2016-10-28 13:11 | CON.GI ---
Consult Consult Specialty:: GI Referred by:: Dr Cuba Reason for Consultation:: Constipation - History of Present Illness Chief Complaint: Patient with MR admitted for management of constipation History of Present Illness: 61 M, well-known to my service, with h/o Down's synd, dementia, spinal stenosis , RLE DVT, on AC, chronic long-standing constipation, sent from residential for management of constipation. He apparently had a BM [address] reveals a large amount of stool in the colon with marked colonic distention at the splenic flexure, and impaction in the rectosigmoid. 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) - Past Surgical History Past Surgical History: Yes: Hernia Repair (umbilical) - Alcohol/Substance Use Hx Alcohol Use: No - Smoking History Smoking history: Never smoked Have you smoked in the past 12 months: No - Social History Usual Living Arrangement: [facility] Home Medications - Allergies Allergies/Adverse Reactions: Allergies Allergy/AdvReac Type Severity Reaction Status Date / Time guaifenesin [From Robitussin] Allergy Verified 10/26/16 12:32 lactulose Allergy Verified 10/26/16 12:32 levofloxacin [From Levaquin] Allergy Verified 10/26/16 12:32 - Home Medications Home Medications: Ambulatory Orders Levothyroxine [Synthroid -] 75 mcg PO DAILY 07/31/15 Ammonium Lactate Cream [Lac-Hydrin 12% Cream -] 1 applic TP DAILY 05/07/16 Quetiapine Fumarate [Seroquel -] 200 mg PO BID 05/08/16 Nutritional Supplement [Ensure] 1 can PO BID 08/29/16 Risperidone [Risperdal] 2 mg PO HS 08/29/16 Megestrol Acetate Oral Susp [Megace Oral Suspension -] 400 mg PO BID cup Calcium Carbonate/Vitamin D3 [Oystercal-D 500 mg-400 Unit Tb] 1 each PO BID Cholecalciferol (Vitamin D3) [Vitamin D3] 1,000 unit PO BID 09/20/16 Linaclotide [Linzess] 145 mcg PO DAILY 09/20/16 Mometasone/Formoterol [Dulera 100 Mcg/5 Mcg Inhaler] 2 inh IH BID 09/20/16 Nortriptyline HCl [Pamelor -] 25 mg PO HS 09/20/16 Paroxetine HCl [Paxil] 40 mg PO DAILY 09/20/16 Folic Acid 1 mg PO DAILY 09/27/16 Apixaban [Eliquis] 5 mg PO BID 10/26/16 Physical Exam-GI Vital Signs: Vital Signs Temperature 98.4 F 10/28/16 05:54 Pulse Rate 100 H 10/28/16 05:54 Respiratory Rate 118 H 10/28/16 05:54 Blood Pressure 114/70 10/28/16 05:54 O2 Sat by Pulse Oximetry (%) 96 10/26/16 21:00 Constitutional: Yes: Well Nourished, Anxious HENT: Yes: Normocephalic Neck: Yes: Supple Cardiovascular: Yes: Regular Rate and Rhythm Respiratory: Yes: CTA Bilaterally Gastrointestinal Inspection: Yes: WNL ...Auscultate: Yes: Normoactive Bowel Sounds ...Palpate: Yes: Soft Labs: CBC, BMP 10/27/16 06:00 10/27/16 06:00 Hepatic Panel Total Bilirubin 0.2 mg/dL (0.2-1.0) 10/27/16 06:00 AST 13 U/L (15-37) L D 10/27/16 06:00 ALT 18 U/L (12-78) D 10/27/16 06:00 Alkaline Phosphatase 67 U/L (45-117) 10/27/16 06:00 Albumin 2.5 g/dl (3.4-5.0) L 10/27/16 06:00 Imaging - Results Cat Scan: Report Reviewed (Feces throughout colon) Assessment/Plan Will start laxative regimen from above and below. Patient has responded well to this regimen in the past Will need more attention at residential re: laxative regimen. Needs large amount of dulcolax and miralax daily
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
[2016-10-28] MEDS ORDERED: POLYETHYLENE GLYCOL 3350 255 GM BTL PO ONE (14:00)
[2016-10-28] MEDS: BISACODYL 5 MG TABLET.DR (FP) PO SCH ×2 (15:45→21:49)
--- NOTE | 2016-10-28 20:46 | PN ---
Progress Note, Physician History of Present Illness: No bowel movement yet - Current Medication List Current Medications: Active Medications Apixaban (Eliquis -) 5 mg PO BID [facility] Last Admin: 10/28/16 10:52 Dose: 5 mg Bisacodyl (Dulcolax -) 10 mg PO TID [facility] Last Admin: 10/28/16 15:45 Dose: 10 mg Calcium Carbonate/Cholecalciferol (Os-Andres 500+D -) 1 tab PO BID [facility] Last Admin: 10/28/16 10:52 Dose: 1 tab Cholecalciferol (Vitamin D3 -) 1,000 unit PO BID [facility] Last Admin: 10/28/16 10:52 Dose: 1,000 unit Docusate Sodium (Colace -) 100 mg PO TID [facility] Last Admin: 10/28/16 15:45 Dose: 100 mg Folic Acid (Folic Acid -) 1 mg PO DAILY [facility] Last Admin: 10/28/16 10:52 Dose: 1 mg Lactic Acid (Lac-Hydrin 12% Cream -) 1 applic TP DAILY [facility] Last Admin: 10/28/16 10:53 Dose: 1 applic Levothyroxine Sodium (Synthroid -) 75 mcg PO AM [facility] Last Admin: 10/28/16 06:15 Dose: 75 mcg Megestrol Acetate (Megace Oral Suspension -) 400 mg PO BID [facility] Last Admin: 10/28/16 10:51 Dose: 400 mg Non-Formulary Medication (Linaclotide [Linzess]) 145 mcg PO DAILY [facility] Non-Formulary Medication (Mometasone/Formoterol [Dulera 100 Mcg/5 Mcg Inhaler]) 2 inh IH BID [facility] Paroxetine HCl (Paxil -) 40 mg PO DAILY [facility] Last Admin: 10/28/16 10:53 Dose: Not Given Quetiapine Fumarate (Seroquel -) 100 mg PO BID [facility] Risperidone (Risperdal -) 2 mg PO HS [facility] Last Admin: 10/27/16 22:00 Dose: 2 mg - Objective Vital Signs: Vital Signs Temperature 98.4 F 10/28/16 18:00 Pulse Rate 103 H 10/28/16 18:00 Respiratory Rate 20 10/28/16 18:00 Blood Pressure 116/62 10/28/16 18:00 O2 Sat by Pulse Oximetry (%) 100 10/28/16 09:00 Neck: Yes: Supple Cardiovascular: Yes: WNL, Regular Rate and Rhythm Respiratory: Yes: WNL, Regular, CTA Bilaterally Gastrointestinal: Yes: WNL, Soft Labs: CBC, BMP 10/27/16 06:00 10/27/16 06:00 Problem List - Problems (1) Abdominal pain Assessment/Plan: Constipation vs fecal impaction Cont present bowel regimen Probably needs placement ?STR PT eval Code(s): R10.9 - UNSPECIFIED ABDOMINAL PAIN (2) Down syndrome Code(s): Q90.9 - DOWN SYNDROME, UNSPECIFIED
[2016-10-28] MEDS: risperiDONE 2 MG TABLET PO SCH (21:52)
[2016-10-29] MEDS: DOCUSATE SODIUM 100 MG CAPSULE (FP) PO SCH ×3 (06:27→21:21)
[2016-10-29] MEDS: LEVOTHYROXINE NA 75 MCG TABLET (FP) PO SCH (06:27)
[2016-10-29] MEDS: BISACODYL 5 MG TABLET.DR (FP) PO SCH ×3 (06:27→21:21)
[2016-10-29] MEDS ORDERED: PARoxetine HCL 10 MG TABLET (FP) ONE (10:36)
[2016-10-29] MEDS: MEGESTROL ACETATE 400 MG/10 ML UNIT DOSE CUP PO SCH ×2 (10:51→21:11)
[2016-10-29] MEDS: CHOLECALCIFEROL (VITAMIN D3) 1,000 UNIT TABLET (FP) PO SCH ×2 (10:52→21:20)
[2016-10-29] MEDS: CALCIUM 500MG/VIT-D 200 UNITS COMBO TABLET (FP) PO SCH ×2 (10:52→21:18)
[2016-10-29] MEDS: FOLIC ACID 1 MG TABLET (FP) PO SCH (10:52)
[2016-10-29] MEDS: PARoxetine HCL 20 MG TABLET (FP) PO SCH (10:53)
[2016-10-29] MEDS: QUEtiapine FUMARATE 100 MG TABLET (FP) PO SCH ×2 (10:55→21:19)
[2016-10-29] MEDS ORDERED: PT OWN MED DRAWER 7, Y5N ONE ×2 (11:28→21:04)
[2016-10-29] MEDS: APIXABAN 5 MG TABLET PO SCH ×2 (11:34→21:18)
[2016-10-29] MEDS: AMMONIUM LACTATE 12% CREAM 140 GM TUBE TP SCH (15:27)
--- NOTE | 2016-10-29 19:50 | PN ---
Progress Note, Physician History of Present Illness: Multiple bowel movements today - Current Medication List Current Medications: Active Medications Apixaban (Eliquis -) 5 mg PO BID [facility] Last Admin: 10/29/16 11:34 Dose: 5 mg Bisacodyl (Dulcolax -) 10 mg PO TID [facility] Last Admin: 10/29/16 15:25 Dose: Not Given Budesonide/Formoterol Fumarate (Symbicort 160/4.5mcg -) 1 puff IH BID [facility] Calcium Carbonate/Cholecalciferol (Os-Andres 500+D -) 1 tab PO BID [facility] Last Admin: 10/29/16 10:52 Dose: 1 tab Cholecalciferol (Vitamin D3 -) 1,000 unit PO BID [facility] Last Admin: 10/29/16 10:52 Dose: 1,000 unit Docusate Sodium (Colace -) 100 mg PO TID [facility] Last Admin: 10/29/16 15:25 Dose: Not Given Folic Acid (Folic Acid -) 1 mg PO DAILY [facility] Last Admin: 10/29/16 10:52 Dose: 1 mg Lactic Acid (Lac-Hydrin 12% Cream -) 1 applic TP DAILY [facility] Last Admin: 10/29/16 15:27 Dose: 1 applic Levothyroxine Sodium (Synthroid -) 75 mcg PO AM [facility] Last Admin: 10/29/16 06:27 Dose: 75 mcg Megestrol Acetate (Megace Oral Suspension -) 400 mg PO BID [facility] Last Admin: 10/29/16 10:51 Dose: 400 mg Non-Formulary Medication (Linaclotide [Linzess]) 145 mcg PO DAILY [facility] Paroxetine HCl (Paxil -) 40 mg PO DAILY [facility] Last Admin: 10/29/16 10:53 Dose: 40 mg Quetiapine Fumarate (Seroquel -) 100 mg PO BID [facility] Last Admin: 10/29/16 10:55 Dose: 100 mg Risperidone (Risperdal -) 2 mg PO HS [facility] Last Admin: 10/28/16 21:52 Dose: 2 mg - Objective Vital Signs: Vital Signs Temperature 98.1 F 10/29/16 18:37 Pulse Rate 113 H 10/29/16 18:37 Respiratory Rate 18 10/29/16 18:37 Blood Pressure 112/76 10/29/16 18:37 O2 Sat by Pulse Oximetry (%) 99 10/29/16 09:00 Neck: Yes: Supple Cardiovascular: Yes: WNL, Regular Rate and Rhythm Respiratory: Yes: WNL, Regular, CTA Bilaterally Gastrointestinal: Yes: WNL, Normal Bowel Sounds, Soft Labs: CBC, BMP 10/27/16 06:00 10/27/16 06:00 Problem List - Problems (1) Abdominal pain Assessment/Plan: Constipation vs fecal impaction Cont present bowel regimen Code(s): R10.9 - UNSPECIFIED ABDOMINAL PAIN (2) Down syndrome Assessment/Plan: Cont seroquel/risperdal/paxil Code(s): Q90.9 - DOWN SYNDROME, UNSPECIFIED (3) Hypothyroidism Assessment/Plan: Cont levothyroxzine Code(s): E03.9 - HYPOTHYROIDISM, UNSPECIFIED Qualifiers: Hypothyroidism type: unspecified Qualified Code(s): E03.9 - Hypothyroidism, unspecified (4) Afib Assessment/Plan: Cont eliquis Heart rate stable Code(s): I48.91 - UNSPECIFIED ATRIAL FIBRILLATION (5) Anemia Assessment/Plan: Cont folic acid Code(s): D64.9 - ANEMIA, UNSPECIFIED (6) Unsteady gait Code(s): R26.81 - UNSTEADINESS ON FEET
[2016-10-29] MEDS: risperiDONE 2 MG TABLET PO SCH (21:19)
[2016-10-29] MEDS: BUDESONIDE/FORMETEROL FUMARATE 160/4.5 mcg INHALER IH SCH (21:20)
[2016-10-30] MEDS: DOCUSATE SODIUM 100 MG CAPSULE (FP) PO SCH ×3 (06:01→21:42)
[2016-10-30] MEDS: BISACODYL 5 MG TABLET.DR (FP) PO SCH ×3 (06:01→21:42)
[2016-10-30] MEDS: LEVOTHYROXINE NA 75 MCG TABLET (FP) PO SCH (06:01)
[2016-10-30] MEDS: PATIENT'S OWN MEDICATION (NON-FORMULARY) (Mometasone/Formoterol [Dulera 100 Mcg/5 Mcg Inha IH SCH ×3 (08:07→08:09)
[2016-10-30] MEDS ORDERED: PARoxetine HCL 10 MG TABLET (FP) ONE (10:23)
[2016-10-30] MEDS ORDERED: PT OWN MED DRAWER 7, Y5N ONE ×2 (10:23→21:16)
[2016-10-30] MEDS: MEGESTROL ACETATE 400 MG/10 ML UNIT DOSE CUP PO SCH ×2 (10:30→21:42)
[2016-10-30] MEDS: CALCIUM 500MG/VIT-D 200 UNITS COMBO TABLET (FP) PO SCH ×2 (10:30→21:41)
[2016-10-30] MEDS: APIXABAN 5 MG TABLET PO SCH ×2 (10:30→21:42)
[2016-10-30] MEDS: FOLIC ACID 1 MG TABLET (FP) PO SCH (10:30)
[2016-10-30] MEDS: CHOLECALCIFEROL (VITAMIN D3) 1,000 UNIT TABLET (FP) PO SCH ×2 (10:30→21:42)
[2016-10-30] MEDS: AMMONIUM LACTATE 12% CREAM 140 GM TUBE TP SCH (10:31)
[2016-10-30] MEDS: PARoxetine HCL 20 MG TABLET (FP) PO SCH (10:32)
[2016-10-30] MEDS: BUDESONIDE/FORMETEROL FUMARATE 160/4.5 mcg INHALER IH SCH ×2 (10:32→21:43)
[2016-10-30] MEDS: QUEtiapine FUMARATE 100 MG TABLET (FP) PO SCH ×2 (10:32→21:43)
[2016-10-30] MEDS: risperiDONE 2 MG TABLET PO SCH (21:43)
--- NOTE | 2016-10-30 22:44 | PN ---
Progress Note, Physician History of Present Illness: No new complaints - Current Medication List Current Medications: Active Medications Apixaban (Eliquis -) 5 mg PO BID [facility] Last Admin: 10/30/16 21:42 Dose: 5 mg Bisacodyl (Dulcolax -) 10 mg PO TID [facility] Last Admin: 10/30/16 21:42 Dose: 10 mg Budesonide/Formoterol Fumarate (Symbicort 160/4.5mcg -) 1 puff IH BID [facility] Last Admin: 10/30/16 21:43 Dose: 1 puff Calcium Carbonate/Cholecalciferol (Os-Andres 500+D -) 1 tab PO BID [facility] Last Admin: 10/30/16 21:41 Dose: 1 tab Cholecalciferol (Vitamin D3 -) 1,000 unit PO BID [facility] Last Admin: 10/30/16 21:42 Dose: 1,000 unit Docusate Sodium (Colace -) 100 mg PO TID [facility] Last Admin: 10/30/16 21:42 Dose: 100 mg Folic Acid (Folic Acid -) 1 mg PO DAILY [facility] Last Admin: 10/30/16 10:30 Dose: 1 mg Lactic Acid (Lac-Hydrin 12% Cream -) 1 applic TP DAILY [facility] Last Admin: 10/30/16 10:31 Dose: 1 applic Levothyroxine Sodium (Synthroid -) 75 mcg PO AM [facility] Last Admin: 10/30/16 06:01 Dose: 75 mcg Megestrol Acetate (Megace Oral Suspension -) 400 mg PO BID [facility] Last Admin: 10/30/16 21:42 Dose: 400 mg Non-Formulary Medication (Linaclotide [Linzess]) 145 mcg PO DAILY [facility] Paroxetine HCl (Paxil -) 40 mg PO DAILY [facility] Last Admin: 10/30/16 10:32 Dose: 40 mg Quetiapine Fumarate (Seroquel -) 100 mg PO BID [facility] Last Admin: 10/30/16 21:43 Dose: 100 mg Risperidone (Risperdal -) 2 mg PO HS [facility] Last Admin: 10/30/16 21:43 Dose: 2 mg - Objective Vital Signs: Vital Signs Temperature 98.2 F 10/30/16 18:50 Pulse Rate 97 H 10/30/16 18:50 Respiratory Rate 18 10/30/16 18:50 Blood Pressure 103/58 10/30/16 18:50 O2 Sat by Pulse Oximetry (%) 97 10/30/16 09:00 Neck: Yes: Supple Cardiovascular: Yes: WNL, Regular Rate and Rhythm Respiratory: Yes: WNL, Regular, CTA Bilaterally Gastrointestinal: Yes: WNL, Normal Bowel Sounds, Soft Labs: CBC, BMP 10/27/16 06:00 10/27/16 06:00 Problem List - Problems (1) Abdominal pain Assessment/Plan: Constipation vs fecal impaction Cont present bowel regimen Awaiting placement Spoke to pt's mother today and she will choose SNF in am for dc planning Code(s): R10.9 - UNSPECIFIED ABDOMINAL PAIN (2) Down syndrome Assessment/Plan: Cont seroquel/risperdal/paxil Code(s): Q90.9 - DOWN SYNDROME, UNSPECIFIED (3) Hypothyroidism Assessment/Plan: Cont levothyroxine Code(s): E03.9 - HYPOTHYROIDISM, UNSPECIFIED Qualifiers: Hypothyroidism type: unspecified Qualified Code(s): E03.9 - Hypothyroidism, unspecified (4) Afib Assessment/Plan: Cont eliquis Heart rate stable Code(s): I48.91 - UNSPECIFIED ATRIAL FIBRILLATION (5) Anemia Code(s): D64.9 - ANEMIA, UNSPECIFIED (6) Unsteady gait Code(s): R26.81 - UNSTEADINESS ON FEET
[2016-10-31] MEDS: BISACODYL 5 MG TABLET.DR (FP) PO SCH ×3 (06:38→22:09)
[2016-10-31] MEDS: DOCUSATE SODIUM 100 MG CAPSULE (FP) PO SCH ×3 (06:38→22:09)
[2016-10-31] MEDS: LEVOTHYROXINE NA 75 MCG TABLET (FP) PO SCH (06:38)
[2016-10-31] MEDS: FOLIC ACID 1 MG TABLET (FP) PO SCH (11:00)
[2016-10-31] MEDS: QUEtiapine FUMARATE 100 MG TABLET (FP) PO SCH ×2 (11:00→22:11)
[2016-10-31] MEDS: APIXABAN 5 MG TABLET PO SCH ×2 (11:00→22:09)
[2016-10-31] MEDS: PARoxetine HCL 20 MG TABLET (FP) PO SCH (11:00)
[2016-10-31] MEDS: BUDESONIDE/FORMETEROL FUMARATE 160/4.5 mcg INHALER IH SCH ×2 (11:00→22:11)
[2016-10-31] MEDS: CALCIUM 500MG/VIT-D 200 UNITS COMBO TABLET (FP) PO SCH ×2 (11:00→22:11)
[2016-10-31] MEDS: MEGESTROL ACETATE 400 MG/10 ML UNIT DOSE CUP PO SCH ×2 (11:00→22:11)
[2016-10-31] MEDS: AMMONIUM LACTATE 12% CREAM 140 GM TUBE TP SCH (11:00)
[2016-10-31] MEDS: CHOLECALCIFEROL (VITAMIN D3) 1,000 UNIT TABLET (FP) PO SCH ×2 (11:00→22:15)
[2016-10-31] MEDS ORDERED: PARoxetine HCL 10 MG TABLET (FP) ONE (11:13)
[2016-10-31] MEDS ORDERED: PT OWN MED DRAWER 7, Y5N ONE (11:13)
[2016-10-31] MEDS: risperiDONE 2 MG TABLET PO SCH (22:11)
--- NOTE | 2016-10-31 23:27 | PN ---
Progress Note, Physician History of Present Illness: No new complaints - Current Medication List Current Medications: Active Medications Apixaban (Eliquis -) 5 mg PO BID [facility] Last Admin: 10/31/16 22:09 Dose: 5 mg Bisacodyl (Dulcolax -) 10 mg PO TID [facility] Last Admin: 10/31/16 22:09 Dose: 10 mg Budesonide/Formoterol Fumarate (Symbicort 160/4.5mcg -) 1 puff IH BID [facility] Last Admin: 10/31/16 22:11 Dose: 1 puff Calcium Carbonate/Cholecalciferol (Os-Andres 500+D -) 1 tab PO BID [facility] Last Admin: 10/31/16 22:11 Dose: 1 tab Cholecalciferol (Vitamin D3 -) 1,000 unit PO BID [facility] Last Admin: 10/31/16 22:15 Dose: 1,000 unit Docusate Sodium (Colace -) 100 mg PO TID [facility] Last Admin: 10/31/16 22:09 Dose: 100 mg Folic Acid (Folic Acid -) 1 mg PO DAILY [facility] Last Admin: 10/31/16 11:00 Dose: 1 mg Lactic Acid (Lac-Hydrin 12% Cream -) 1 applic TP DAILY [facility] Last Admin: 10/31/16 11:00 Dose: 1 applic Levothyroxine Sodium (Synthroid -) 75 mcg PO AM [facility] Last Admin: 10/31/16 06:38 Dose: 75 mcg Megestrol Acetate (Megace Oral Suspension -) 400 mg PO BID [facility] Last Admin: 10/31/16 22:11 Dose: 400 mg Non-Formulary Medication (Linaclotide [Linzess]) 145 mcg PO DAILY [facility] Paroxetine HCl (Paxil -) 40 mg PO DAILY [facility] Last Admin: 10/31/16 11:00 Dose: 40 mg Quetiapine Fumarate (Seroquel -) 100 mg PO BID [facility] Last Admin: 10/31/16 22:11 Dose: 100 mg Risperidone (Risperdal -) 2 mg PO HS [facility] Last Admin: 10/31/16 22:11 Dose: 2 mg - Objective Vital Signs: Vital Signs Temperature 97.6 F 10/31/16 17:18 Pulse Rate 113 H 10/31/16 17:18 Respiratory Rate 18 10/31/16 17:18 Blood Pressure 120/67 10/31/16 17:18 O2 Sat by Pulse Oximetry (%) 99 10/31/16 09:00 Constitutional: Yes: Well Nourished Cardiovascular: Yes: WNL, Regular Rate and Rhythm Respiratory: Yes: WNL, Regular, CTA Bilaterally Gastrointestinal: Yes: WNL, Normal Bowel Sounds, Soft, Abdomen, Obese Extremities: Yes: WNL Labs: CBC, BMP 10/27/16 06:00 10/27/16 06:00 Problem List - Problems (1) Abdominal pain Assessment/Plan: Constipation vs fecal impaction Cont present bowel regimen Awaiting placement Code(s): R10.9 - UNSPECIFIED ABDOMINAL PAIN (2) Down syndrome Assessment/Plan: Cont seroquel/risperdal/paxil Code(s): Q90.9 - DOWN SYNDROME, UNSPECIFIED (3) Hypothyroidism Assessment/Plan: Cont levothyroxine Code(s): E03.9 - HYPOTHYROIDISM, UNSPECIFIED Qualifiers: Hypothyroidism type: unspecified Qualified Code(s): E03.9 - Hypothyroidism, unspecified (4) Afib Assessment/Plan: Cont eliquis Heart rate stable Code(s): I48.91 - UNSPECIFIED ATRIAL FIBRILLATION (5) Anemia Assessment/Plan: Cont folic acid Code(s): D64.9 - ANEMIA, UNSPECIFIED (6) Unsteady gait Code(s): R26.81 - UNSTEADINESS ON FEET
[2016-11-01] MEDS: BISACODYL 5 MG TABLET.DR (FP) PO SCH ×3 (06:25→21:58)
[2016-11-01] MEDS: LEVOTHYROXINE NA 75 MCG TABLET (FP) PO SCH (06:25)
[2016-11-01] MEDS: DOCUSATE SODIUM 100 MG CAPSULE (FP) PO SCH ×3 (06:25→21:59)
[2016-11-01] MEDS: QUEtiapine FUMARATE 100 MG TABLET (FP) PO SCH ×2 (10:00→21:59)
[2016-11-01] MEDS: CALCIUM 500MG/VIT-D 200 UNITS COMBO TABLET (FP) PO SCH ×2 (10:00→21:58)
[2016-11-01] MEDS: PARoxetine HCL 20 MG TABLET (FP) PO SCH (10:00)
[2016-11-01] MEDS: FOLIC ACID 1 MG TABLET (FP) PO SCH (10:00)
[2016-11-01] MEDS: MEGESTROL ACETATE 400 MG/10 ML UNIT DOSE CUP PO SCH ×2 (10:00→22:00)
[2016-11-01] MEDS: APIXABAN 5 MG TABLET PO SCH ×2 (10:00→21:59)
[2016-11-01] MEDS: BUDESONIDE/FORMETEROL FUMARATE 160/4.5 mcg INHALER IH SCH ×2 (10:00→22:09)
[2016-11-01] MEDS: AMMONIUM LACTATE 12% CREAM 140 GM TUBE TP SCH (10:00)
[2016-11-01] MEDS: CHOLECALCIFEROL (VITAMIN D3) 1,000 UNIT TABLET (FP) PO SCH ×2 (10:00→21:58)
[2016-11-01] MEDS ORDERED: PARoxetine HCL 10 MG TABLET (FP) ONE (10:03)
[2016-11-01] MEDS ORDERED: PT OWN MED DRAWER 7, Y5N ONE (21:52)
[2016-11-01] MEDS: risperiDONE 2 MG TABLET PO SCH (22:00)
--- NOTE | 2016-11-01 23:18 | PN ---
Progress Note, Physician History of Present Illness: No new complaints - Current Medication List Current Medications: Active Medications Apixaban (Eliquis -) 5 mg PO BID [facility] Last Admin: 11/01/16 21:59 Dose: 5 mg Bisacodyl (Dulcolax -) 10 mg PO TID [facility] Last Admin: 11/01/16 21:58 Dose: 10 mg Budesonide/Formoterol Fumarate (Symbicort 160/4.5mcg -) 1 puff IH BID [facility] Last Admin: 11/01/16 22:09 Dose: 1 puff Calcium Carbonate/Cholecalciferol (Os-Andres 500+D -) 1 tab PO BID [facility] Last Admin: 11/01/16 21:58 Dose: 1 tab Cholecalciferol (Vitamin D3 -) 1,000 unit PO BID [facility] Last Admin: 11/01/16 21:58 Dose: 1,000 unit Docusate Sodium (Colace -) 100 mg PO TID [facility] Last Admin: 11/01/16 21:59 Dose: 100 mg Folic Acid (Folic Acid -) 1 mg PO DAILY [facility] Last Admin: 11/01/16 10:00 Dose: 1 mg Lactic Acid (Lac-Hydrin 12% Cream -) 1 applic TP DAILY [facility] Last Admin: 11/01/16 10:00 Dose: 1 applic Levothyroxine Sodium (Synthroid -) 75 mcg PO AM [facility] Last Admin: 11/01/16 06:25 Dose: 75 mcg Megestrol Acetate (Megace Oral Suspension -) 400 mg PO BID [facility] Last Admin: 11/01/16 22:00 Dose: 400 mg Non-Formulary Medication (Linaclotide [Linzess]) 145 mcg PO DAILY [facility] Paroxetine HCl (Paxil -) 40 mg PO DAILY [facility] Last Admin: 11/01/16 10:00 Dose: 40 mg Quetiapine Fumarate (Seroquel -) 100 mg PO BID [facility] Last Admin: 11/01/16 21:59 Dose: 100 mg Risperidone (Risperdal -) 2 mg PO HS [facility] Last Admin: 11/01/16 22:00 Dose: 2 mg - Objective Vital Signs: Vital Signs Temperature 98.4 F 11/01/16 18:42 Pulse Rate 66 11/01/16 18:42 Respiratory Rate 18 11/01/16 18:42 Blood Pressure 130/62 11/01/16 18:42 O2 Sat by Pulse Oximetry (%) 98 11/01/16 09:00 Cardiovascular: Yes: WNL, Regular Rate and Rhythm Respiratory: Yes: WNL, Regular, CTA Bilaterally Gastrointestinal: Yes: WNL, Normal Bowel Sounds, Soft Labs: CBC, BMP 10/27/16 06:00 10/27/16 06:00 Problem List - Problems (1) Mental retardation Code(s): F79 - UNSPECIFIED INTELLECTUAL DISABILITIES (2) Abdominal pain Code(s): R10.9 - UNSPECIFIED ABDOMINAL PAIN (3) Down syndrome Code(s): Q90.9 - DOWN SYNDROME, UNSPECIFIED (4) Unsteady gait Code(s): R26.81 - UNSTEADINESS ON FEET (5) Hypothyroidism Code(s): E03.9 - HYPOTHYROIDISM, UNSPECIFIED
[2016-11-02] MEDS: LEVOTHYROXINE NA 75 MCG TABLET (FP) PO SCH (06:35)
[2016-11-02] MEDS: BISACODYL 5 MG TABLET.DR (FP) PO SCH ×2 (06:35→13:51)
[2016-11-02] MEDS: DOCUSATE SODIUM 100 MG CAPSULE (FP) PO SCH ×2 (06:35→13:50)
[2016-11-02] MEDS ORDERED: PARoxetine HCL 10 MG TABLET (FP) ONE (09:41)
[2016-11-02 10:11] VITALS: TEMP 98.1
[2016-11-02] MEDS: CALCIUM 500MG/VIT-D 200 UNITS COMBO TABLET (FP) PO SCH (10:32)
[2016-11-02] MEDS: MEGESTROL ACETATE 400 MG/10 ML UNIT DOSE CUP PO SCH (10:32)
[2016-11-02] MEDS: CHOLECALCIFEROL (VITAMIN D3) 1,000 UNIT TABLET (FP) PO SCH (10:32)
[2016-11-02] MEDS: QUEtiapine FUMARATE 100 MG TABLET (FP) PO SCH (10:33)
[2016-11-02] MEDS: APIXABAN 5 MG TABLET PO SCH (10:33)
[2016-11-02] MEDS: PARoxetine HCL 20 MG TABLET (FP) PO SCH (10:33)
[2016-11-02] MEDS: FOLIC ACID 1 MG TABLET (FP) PO SCH (10:33)
[2016-11-02] MEDS: BUDESONIDE/FORMETEROL FUMARATE 160/4.5 mcg INHALER IH SCH (10:34)
[2016-11-02] MEDS: AMMONIUM LACTATE 12% CREAM 140 GM TUBE TP SCH (10:34)
--- NOTE | 2016-11-02 14:27 | DS ---
Physical Examination Vital Signs: Vital Signs Temperature 98.1 F 11/02/16 10:10 Pulse Rate 93 H 11/02/16 10:10 Respiratory Rate 18 11/02/16 10:10 Blood Pressure 106/69 11/02/16 10:10 O2 Sat by Pulse Oximetry (%) 98 11/02/16 09:00 Constitutional: Yes: Well Nourished Neck: Yes: Supple Cardiovascular: Yes: WNL, Regular Rate and Rhythm Respiratory: Yes: WNL, Regular, CTA Bilaterally Gastrointestinal: Yes: WNL, Normal Bowel Sounds, Soft Labs: CBC, BMP 10/27/16 06:00 10/27/16 06:00 Discharge Summary Reason For Visit: CONSTIPATION Current Active Problems Afib (Acute) Anemia (Acute) Bronchitis (Acute) Constipation (Acute) Hypothyroidism (Acute) Mental retardation (Acute) Hospital Course: Pt is a 61 y/o male w/ Down's syndrome who has become increasingly more wheelchair bound with unsteady gait. Pt has had muiltiple hospitalizations for constipation/fecal impaction. Pt was seen by gastroenterology. Pt had ct scan abdomen whisch showed constipation and stool in rectosigmoid. Condition: Fair - Instructions Diet, Activity, Other Instructions: Pureed diet Referrals: Magaly Cuba MD [Primary Care Provider] - [facility] - Home Medications Comprehensive Discharge Medication List: Ambulatory Orders Levothyroxine [Synthroid -] 75 mcg PO DAILY 07/31/15 Ammonium Lactate Cream [Lac-Hydrin 12% Cream -] 1 applic TP DAILY 05/07/16 Quetiapine Fumarate [Seroquel -] 200 mg PO BID 05/08/16 Nutritional Supplement [Ensure] 1 can PO BID 08/29/16 Risperidone [Risperdal] 2 mg PO HS 08/29/16 Megestrol Acetate Oral Susp [Megace Oral Suspension -] 400 mg PO BID cup Calcium Carbonate/Vitamin D3 [Oystercal-D 500 mg-400 Unit Tb] 1 each PO BID Cholecalciferol (Vitamin D3) [Vitamin D3] 1,000 unit PO BID 09/20/16 Linaclotide [Linzess] 145 mcg PO DAILY 09/20/16 Mometasone/Formoterol [Dulera 100 Mcg/5 Mcg Inhaler] 2 inh IH BID 09/20/16 Nortriptyline HCl [Pamelor -] 25 mg PO HS 09/20/16 Paroxetine HCl [Paxil] 40 mg PO DAILY 09/20/16 Folic Acid 1 mg PO DAILY 09/27/16 Apixaban [Eliquis] 5 mg PO BID 10/26/16 Bisacodyl [Bisacodyl -] 10 mg PO TID #90 tablet. 11/02/16 Budesonide/Formeterol Fumarate [SYMBICORT 160/4.5mcg -] 1 puff IH BID #60 inhaler 11/02/16 Docusate Sodium [Colace -] 100 mg PO TID #90 capsule 11/02/16 Linaclotide [Linzess] 145 mcg PO DAILY 11/02/16
[2016-11-02 15:06] VITALS: BP 114/61; PULSE 91
== END 2016-11-02 17:15 | DRG 392 ==
LOC: JER 12:12 → JERBED 14:33 → J7W 17:53
PROVIDERS: ADMIT Internal Medicine; ATTEND Internal Medicine
DX: K59.00 Constipation, unspecified (principal); Q90.9 Down syndrome, unspecified; F71 Moderate intellectual disabilities; Z86.718 Personal history of other venous thrombosis and embolism; Z79.01 Long term (current) use of anticoagulants; M48.00 Spinal stenosis, site unspecified; F03.90 Unspecified dementia, unspecified severity, without behavioral disturbance, psychotic disturbance, mood disturbance, and anxiety; R26.81 Unsteadiness on feet; E03.9 Hypothyroidism, unspecified; F63.9 Impulse disorder, unspecified; R10.9 Unspecified abdominal pain; I48.91 Unspecified atrial fibrillation; D64.9 Anemia, unspecified
CPT/HCPCS: 36415; 71010-TC; 74177-TC; 80053; 81003; 81015; 85025; 87086; 87186; 97116-GP; 97161-GP; 99284-25

== ENCOUNTER 2016-11-03 18:14 | Inpatient (IN) | payer OTHER ==
[2016-11-03 18:35] VITALS: BMI 21.0
--- NOTE | 2016-11-03 19:27 | PDOC ---
History of Present Illness - General History Source: Family - History of Present Illness Initial Comments: 11/03/16 19:38 The patient is a 61 year old male with a PMHx of Downs syndrome, mitral and tricuspid valve prolapse, Hashimotos disease, who presents to the ED from [facility] with early signs of dementia. The patient was discharged last night after a 2 week admission for constipation. He was sent to [facility] yesterday, but the center told family that they are unable to care for him there. He presents today with no current pain. Family reports that he has had signs of dementia since July and has been in and out of the hospital since August. Family reports recent weight loss. Patient has a loja catheter in place, but family is unclear why. Medical records mention catheter but do not mention why he has one. <Sabina Argueta - Last Filed: 11/04/16 00:41> <Kat Lema - Last Filed: 11/04/16 08:32> - General Chief Complaint: Psychiatric Stated Complaint: BEHAVIORAL ISSUES Past History <Sabina Argueta - Last Filed: 11/04/16 00:41> - Past Medical History Anemia: No 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) Thyroid Disease: Yes (HypoTHYROIDISM, [place]) Other medical history: DOWNS SYNDROME. - Surgical History Orthopedic Surgery: Yes (BONE MARROW RT HIP) - Immunization History Immunization Up to Date: Yes - Psycho/Social/Smoking Cessation Hx Anxiety: No Suicidal Ideation: No Smoking History: Never smoked Have you smoked in the past 12 months: No Hx Alcohol Use: No Drug/Substance Use Hx: No Substance Use Type: None Hx Substance Use Treatment: No <Kat Lema - Last Filed: 11/04/16 08:32> - Past Medical History Allergies/Adverse Reactions: Allergies Allergy/AdvReac Type Severity Reaction Status Date / Time guaifenesin [From Robitussin] Allergy Verified 11/03/16 18:29 lactulose Allergy Verified 11/03/16 18:29 levofloxacin [From Levaquin] Allergy Verified 11/03/16 18:29 Home Medications: Ambulatory Orders Levothyroxine [Synthroid -] 75 mcg PO DAILY 07/31/15 Ammonium Lactate Cream [Lac-Hydrin 12% Cream -] 1 applic TP DAILY 05/07/16 Quetiapine Fumarate [Seroquel -] 200 mg PO BID 05/08/16 Nutritional Supplement [Ensure] 1 can PO BID 08/29/16 Risperidone [Risperdal] 2 mg PO HS 08/29/16 Megestrol Acetate Oral Susp [Megace Oral Suspension -] 400 mg PO BID cup Calcium Carbonate/Vitamin D3 [Oystercal-D 500 mg-400 Unit Tb] 1 each PO BID Cholecalciferol (Vitamin D3) [Vitamin D3] 1,000 unit PO BID 09/20/16 Linaclotide [Linzess] 145 mcg PO DAILY 09/20/16 Mometasone/Formoterol [Dulera 100 Mcg/5 Mcg Inhaler] 2 inh IH BID 09/20/16 Nortriptyline HCl [Pamelor -] 25 mg PO HS 09/20/16 Paroxetine HCl [Paxil] 40 mg PO DAILY 09/20/16 Folic Acid 1 mg PO DAILY 09/27/16 Apixaban [Eliquis] 5 mg PO BID 10/26/16 Bisacodyl [Bisacodyl -] 10 mg PO TID #90 tablet. 11/02/16 Budesonide/Formeterol Fumarate [SYMBICORT 160/4.5mcg -] 1 puff IH BID #60 inhaler 11/02/16 Docusate Sodium [Colace -] 100 mg PO TID #90 capsule 11/02/16 Review of Systems - Review of Systems Able to Perform ROS?: No (Down's syndrome, dementia) <Sabina Argueta - Last Filed: 11/04/16 00:41> *Physical Exam - Vital Signs Last Vital Signs Temp Pulse Resp BP Pulse Ox 86 20 112/56 98 11/03/16 18:29 11/03/16 18:29 11/03/16 18:29 11/03/16 18:29 - Physical Exam Comments: 11/03/16 19:38 GENERAL: Awake, alert, and fully oriented, in no acute distress HEAD: No signs of trauma EYES: PERRLA, EOMI, sclera anicteric, conjunctiva clear ENT: Auricles normal inspection, hearing grossly normal, nares patent, oropharynx clear without exudates. Moist mucosa NECK: Normal ROM, supple, no lymphadenopathy, JVD, or masses LUNGS: Breath sounds equal, clear to auscultation bilaterally. No wheezes, and no crackles HEART: Regular rate and rhythm, normal S1 and S2, no murmurs, rubs or gallops ABDOMEN: Soft, nontender, normoactive bowel sounds. No guarding, no rebound. No masses EXTREMITIES: Normal range of motion, no edema. No clubbing or cyanosis. No cords, erythema, or tenderness NEUROLOGICAL: Cranial nerves II through XII grossly intact. Normal speech, normal gait SKIN: Warm, Dry, normal turgor, no rashes or lesions noted. <KendallSabina A - Last Filed: 11/04/16 00:41> - Vital Signs Last Vital Signs Temp Pulse Resp BP Pulse Ox 86 20 112/56 98 11/03/16 18:29 11/03/16 18:29 11/03/16 18:29 11/03/16 18:29 <Kat Lema - Last Filed: 11/04/16 08:32> ED Treatment Course - LABORATORY CBC & Chemistry Diagram: 11/03/16 20:40 11/03/16 20:40 - RADIOLOGY Radiograph Interpretation: 11/04/16 00:[address] by Dr[address] Jack Dailey Impression: There are involutional changes. The ventricles are slightly prominent but this could be part of the involutional change. Please note that in general, standard head CT cannot be used in isolation for definitive diagnosis of normal pressure hydrocephalus. No bleed. No mass. No infarct. No shift or herniation. <KendallSabina A - Last Filed: 11/04/16 00:41> - LABORATORY CBC & Chemistry Diagram: 11/04/16 06:45 11/04/16 06:45 <Kat Lema - Last Filed: 11/04/16 08:32> Medical Decision Making - Medical Decision Making 11/04/16 01:08 Patient Name: Germán Montano THIS IS A PRELIMINARYREPORT FROM IMAGING PROGRAM OR PROJECT ADMINISTRATOR EXAM: CT brain without contrast IMAGES: 72 EXAM DATE AND TIME: 2016-11-03 23: 50:13.0 REASON FOR EXAM: "Rule out normal pressure hydrocephalus" COMPARISON: No FINDINGS: There are involutional changes. The ventricles are slightly prominent but this could be part of the involutional change. Please note that in general, standard head CT cannot be used in isolation for definitive diagnosis of normal pressure hydrocephalus. No bleed. No mass. No infarct. No shift or herniation. THIS DOCUMENT HAS BEEN ELECTRONICALLY SIGNED 11/04/16 08:30 Pt will be readmitted, as he has a UTI (seen on cultures taken during last admission) Pt has Loja catheter; nobody knows why it was placed; neither family, nor [place] records, nor hospital records. 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 11/04/16 08:32 Dr. Cuba is aware of the patient and accepts the patient. <Kta Lema - Last Filed: 11/04/16 08:32> *DC/Admit/Observation/Transfer - Attestations Scribe Attestion: 11/03/16 19:39 Documentation prepared by Sabina Argueta, acting as medical record assistant for Kat Lema MD. <Sabina Argueta - Last Filed: 11/04/16 00:41> - Discharge Dispostion Admit: Yes <Kat Lema - Last Filed: 11/04/16 08:32> Diagnosis at time of Disposition: Normal pressure hydrocephalus syndrome, Agitation, Hypothyroidism, UTI ( urinary tract infection), Fever
[2016-11-03] MEDS ORDERED: NITROFURANTOIN MACROCRYSTAL 50 MG CAPSULE (FP) PO ONE (20:15)
[2016-11-03] MEDS ORDERED: NITROFURANTOIN MACROCRYSTAL 50 MG CAPSULE (FP) PO SCH (20:15)
[2016-11-03] MEDS ORDERED: NITROFURANTOIN MACROCRYSTAL 50 MG CAPSULE (FP) ONE (20:52)
[2016-11-03] MEDS ORDERED: ACETAMINOPHEN 650 MG/20.3 ML ORAL SOLUTION (CUPS) ONE (20:52)
[2016-11-03 20:58] LABS: BASOPHIL 0.7 % (0-2.0); EOSINOPHIL 0.6 % (0-4.5); MCH 30.8 pg (25.7-33.7); MEAN CELL VOLUME 93.5 fl (80-96); MEAN PLT VOLUME 8.4 fl (7.5-11.1); NEUTROPHILS 71.2 % (42.8-82.8); PLATELET COUNT 248 K/MM3 (134-434); RDW 16.7 % (11.9-15.9); WHITE BLOOD COUNT 5.5 K/mm3 (4.0-10.0)
[2016-11-03] MEDS ORDERED: ACETAMINOPHEN 325 MG TABLET (FP) PO ONE (21:00)
[2016-11-03 21:19] LABS: ALBUMIN 2.7 g/dl (3.4-5.0); BILIRUBIN,TOTAL 0.2 mg/dL (0.2-1.0); CALCIUM 10.1 mg/dL (8.5-10.1); CREATININE 1.3 mg/dL (0.7-1.3); TOT PROT 6.1 g/dl (6.4-8.2)
[2016-11-03] MEDS ORDERED: LEVOTHYROXINE NA 150 MCG TABLET PO ONE (21:51)
[2016-11-03] MEDS ORDERED: LORAZEPAM CARPU-JECT 2 MG/ML DISP.SYRIN IM ONE (22:51)
[2016-11-03] MEDS ORDERED: LORAZEPAM CARPU-JECT 2 MG/ML DISP.SYRIN ONE (22:53)
[2016-11-04] MEDS ORDERED: DEXTROSE 5%-0.45% SALINE 1,000 ML IV SCH (04:30)
[2016-11-04] MEDS: DOCUSATE SODIUM 100 MG CAPSULE (FP) PO SCH ×3 (06:25→21:29)
[2016-11-04] MEDS: BISACODYL 5 MG TABLET.DR (FP) PO SCH ×3 (07:04→21:13)
[2016-11-04 07:20] LABS: BASOPHIL 1.1 % (0-2.0); EOSINOPHIL 0.7 % (0-4.5); MCH 30.8 pg (25.7-33.7); MCHC 32.8 g/dl (32.0-35.9); MEAN CELL VOLUME 93.9 fl (80-96); MEAN PLT VOLUME 8.4 fl (7.5-11.1); NEUTROPHILS 65.5 % (42.8-82.8); PLATELET COUNT 218 K/MM3 (134-434); RDW 16.7 % (11.9-15.9); WHITE BLOOD COUNT 5.5 K/mm3 (4.0-10.0)
[2016-11-04 07:43] LABS: ALBUMIN 2.7 g/dl (3.4-5.0); ANION GAP 8 (8-16); BILIRUBIN,TOTAL 0.2 mg/dL (0.2-1.0); CALCIUM 9.9 mg/dL (8.5-10.1); CO2 26 mmol/L (21-32); CREATININE 1.2 mg/dL (0.7-1.3); GLUCOSE,RANDOM 89 mg/dL (74-106); SGOT/AST 14 U/L (15-37); SGPT/ALT 16 U/L (12-78); TOT PROT 6.1 g/dl (6.4-8.2)
[2016-11-04 07:44] LABS: ALK PHOS 58 U/L (45-117)
[2016-11-04] MEDS ORDERED: cefTRIAXone 1 GM/50 ML BAG (PRE-DOCKED) IVPB SCH (10:00)
[2016-11-04] MEDS ORDERED: PATIENT'S OWN MEDICATION (NON-FORMULARY) (Linaclotide [Linzess] 145 MCG) PO SCH (10:00)
[2016-11-04] MEDS ORDERED: NUTRITIONAL SUPPLEMENT PO SCH (10:00)
[2016-11-04] MEDS ORDERED: PATIENT'S OWN MEDICATION (NON-FORMULARY) (Mometasone/Formoterol [Dulera 100 Mcg/5 Mcg Inha IH SCH (10:00)
[2016-11-04] MEDS ORDERED: CEFTRIAXONE 1 GM in DEXTROSE 5%-WATER - 50 ML IVPB SCH (10:00)
[2016-11-04] MEDS: AMMONIUM LACTATE 12% CREAM 140 GM TUBE TP SCH ×2 (10:42→10:47)
--- NOTE | 2016-11-04 11:28 | PN ---
Progress Note (short form) - Note Progress Note: staffed with patient's bedside nurse. patient sleeping no acute neuro changes with neg ct for acute changes. Informed neuro re-consult deferred to 11/05/16 due to unsafe travel conditions. Suggest Social Service consult for placement in facility specializing in special needs.
[2016-11-04] MEDS: PARoxetine HCL 20 MG TABLET (FP) PO SCH (13:51)
[2016-11-04] MEDS: APIXABAN 5 MG TABLET PO SCH ×2 (13:52→21:11)
[2016-11-04] MEDS: QUEtiapine FUMARATE 50 MG TABLET PO SCH ×2 (13:52→21:34)
[2016-11-04] MEDS: MEGESTROL ACETATE 400 MG/10 ML UNIT DOSE CUP PO SCH ×2 (13:54→21:13)
[2016-11-04] MEDS: CHOLECALCIFEROL (VITAMIN D3) 1,000 UNIT TABLET (FP) PO SCH ×2 (13:54→21:12)
[2016-11-04] MEDS: FOLIC ACID 1 MG TABLET (FP) PO SCH (13:54)
[2016-11-04] MEDS: CALCIUM 500MG/VIT-D 200 UNITS COMBO TABLET (FP) PO SCH ×2 (13:54→21:11)
[2016-11-04] MEDS: BUDESONIDE/FORMETEROL FUMARATE 160/4.5 mcg INHALER IH SCH ×2 (14:30→21:35)
[2016-11-04 16:00] LABS: URINE APPEARANCE CLOUDY; URINE BILIRUBIN NEGATIVE (NEGATIVE); URINE BLOOD NEGATIVE (NEGATIVE); URINE COLOR YELLOW; URINE GLUCOSE (UA) NEGATIVE (NEGATIVE); URINE KETONE NEGATIVE (NEGATIVE); URINE NITRITE POSITIVE (NEGATIVE); URINE PROTEIN NEGATIVE (NEGATIVE); URINE UROBILINOGEN NEGATIVE E.U./dl (0.2-1.0)
[2016-11-04 16:04] LABS: URINE LEUK ESTERASE 3+ (NEGATIVE)
[2016-11-04 16:08] LABS: URINE BACTERIA RARE /hpf (NONE SEEN); URINE RBC 1 /hpf (0-3); URINE WBC 159 /hpf (3-5)
[2016-11-04] MEDS ORDERED: PT OWN MED DRAWER 7, Y5N ONE (20:53)
[2016-11-04] MEDS: risperiDONE 1 MG TABLET (FP) PO SCH (21:11)
[2016-11-04] MEDS ORDERED: NORTRIPTYLINE HCL 25 MG CAPSULE PO SCH (22:00)
[2016-11-04] MEDS ORDERED: ACETAMINOPHEN 325 MG TABLET (FP) PO PRN (23:10)
--- NOTE | 2016-11-04 23:42 | HP ---
Admitting History and Physical - Admission Chief Complaint: Altered mental status History of Present Illness: Pt is a 61 y/o male w/ PMH significant for Down's syndrome, dementia, hypothyroidism and constipation/fecal impaction. Pt recently was dc'ed from [facility] to [facility] and was sent back being that pt was agitated and unable to be cared for. 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: Yes: Dementia, Other (Dpwn's syndrome) Gastrointestinal: Yes: Constipation, Other (Fecal impaction) Musculoskeletal: Yes: Other (Spinal stenosis) - Past Surgical History Past Surgical History: Yes: Hernia Repair (umbilical) - Smoking History Smoking history: Never smoked Have you smoked in the past 12 months: No - Alcohol/Substance Use Hx Alcohol Use: No Home Medications - Allergies Allergies/Adverse Reactions: Allergies Allergy/AdvReac Type Severity Reaction Status Date / Time guaifenesin [From Robitussin] Allergy Verified 11/03/16 18:29 lactulose Allergy Verified 11/03/16 18:29 levofloxacin [From Levaquin] Allergy Verified 11/03/16 18:29 - Home Medications Home Medications: Ambulatory Orders Levothyroxine [Synthroid -] 75 mcg PO DAILY 07/31/15 Ammonium Lactate Cream [Lac-Hydrin 12% Cream -] 1 applic TP DAILY 05/07/16 Quetiapine Fumarate [Seroquel -] 200 mg PO BID 05/08/16 Nutritional Supplement [Ensure] 1 can PO BID 08/29/16 Risperidone [Risperdal] 2 mg PO HS 08/29/16 Megestrol Acetate Oral Susp [Megace Oral Suspension -] 400 mg PO BID cup Calcium Carbonate/Vitamin D3 [Oystercal-D 500 mg-400 Unit Tb] 1 each PO BID Cholecalciferol (Vitamin D3) [Vitamin D3] 1,000 unit PO BID 09/20/16 Linaclotide [Linzess] 145 mcg PO DAILY 09/20/16 Mometasone/Formoterol [Dulera 100 Mcg/5 Mcg Inhaler] 2 inh IH BID 09/20/16 Nortriptyline HCl [Pamelor -] 25 mg PO HS 09/20/16 Paroxetine HCl [Paxil] 40 mg PO DAILY 09/20/16 Folic Acid 1 mg PO DAILY 09/27/16 Apixaban [Eliquis] 5 mg PO BID 10/26/16 Bisacodyl [Bisacodyl -] 10 mg PO TID #90 tablet. 11/02/16 Budesonide/Formeterol Fumarate [SYMBICORT 160/4.5mcg -] 1 puff IH BID #60 inhaler 11/02/16 Docusate Sodium [Colace -] 100 mg PO TID #90 capsule 11/02/16 Family Disease History - Family Disease History Family History: Unable to Obtain Review of Systems Findings/Remarks: Dementia/Down's syndrome Physical Examination Vital Signs: Vital Signs Temperature 98.8 F 11/04/16 18:32 Pulse Rate 91 H 11/04/16 18:32 Respiratory Rate 20 11/04/16 18:32 Blood Pressure 109/64 11/04/16 18:32 O2 Sat by Pulse Oximetry (%) 95 11/04/16 09:00 Constitutional: Yes: Well Nourished Eyes: Yes: WNL HENT: Yes: WNL Neck: Yes: WNL Cardiovascular: Yes: WNL, Regular Rate and Rhythm Respiratory: Yes: WNL, Regular, CTA Bilaterally Gastrointestinal: Yes: WNL, Normal Bowel Sounds, Soft, Abdomen, Obese Musculoskeletal: Yes: WNL Extremities: Yes: WNL Edema: No Labs: CBC, BMP 11/04/16 06:45 11/04/16 06:45 Problem List - Problems (1) UTI (urinary tract infection) Assessment/Plan: Check urine culture Will remove loja Cont IV antibxs ID consult Code(s): N39.0 - URINARY TRACT INFECTION, SITE NOT SPECIFIED (2) Hypothyroidism Assessment/Plan: Increase dose of levothyroxine due to TSH still elevated Code(s): E03.9 - HYPOTHYROIDISM, UNSPECIFIED (3) Afib Assessment/Plan: Pt is in NSR Cont xarelto for paroxysmal afib Code(s): I48.91 - UNSPECIFIED ATRIAL FIBRILLATION (4) Anemia Code(s): D64.9 - ANEMIA, UNSPECIFIED (5) Constipation Assessment/Plan: Cont present regimen Code(s): K59.00 - CONSTIPATION, UNSPECIFIED Qualifiers: Constipation type: unspecified constipation type Qualified Code(s): K59.00 - Constipation, unspecified (6) Down syndrome Code(s): Q90.9 - DOWN SYNDROME, UNSPECIFIED (7) Unsteady gait Code(s): R26.81 - UNSTEADINESS ON FEET
[2016-11-05] MEDS: DEXTROSE 5%-0.45% SALINE 1,000 ML IV SCH (00:12)
[2016-11-05] MEDS ORDERED: PIPERACILLIN/TAZOB 3.375 GM/50 ML PRE-DOCKED IVPB SCH (02:45)
[2016-11-05] MEDS ORDERED: PIPERACILLIN/TAZOB 3.375 GM/50 ML PRE-DOCKED IVPB ONE (03:45)
[2016-11-05] MEDS: BISACODYL 5 MG TABLET.DR (FP) PO SCH ×3 (06:21→22:35)
[2016-11-05] MEDS: LEVOTHYROXINE NA 125 MCG TABLET (FP) PO SCH (06:22)
[2016-11-05] MEDS: DOCUSATE SODIUM 100 MG CAPSULE (FP) PO SCH ×3 (06:22→22:35)
[2016-11-05 07:08] LABS: BASOPHIL 0.7 % (0-2.0); EOSINOPHIL 0.3 % (0-4.5); MCH 30.9 pg (25.7-33.7); MEAN CELL VOLUME 93.7 fl (80-96); MEAN PLT VOLUME 8.5 fl (7.5-11.1); NEUTROPHILS 73.9 % (42.8-82.8); PLATELET COUNT 196 K/MM3 (134-434); RDW 16.3 % (11.9-15.9); WHITE BLOOD COUNT 6.2 K/mm3 (4.0-10.0)
[2016-11-05] MEDS ORDERED: PT OWN MED DRAWER 7, Y5N ONE ×3 (10:49→22:27)
--- NOTE | 2016-11-05 11:11 | CON.PSY ---
Psychiatry Consult Chief Complaint: Patient with developmental disability admitted with UTI. On many psych meds. - Previous Psychiatric Treatment Outpatient: Less than 6 mos ago Inpatient: None - Previous Substance Abuse Treatment Outpatient: None Inpatient: None - Reason for Previous Treatment Reason for Previous Treatment: Major Depression, Mental Retardation - Current Medications Current Medications: Active Medications Acetaminophen (Tylenol -) 650 mg PO Q6H PRN PRN Reason: FEVER OR PAIN Last Admin: 11/05/16 06:21 Dose: 650 mg Apixaban (Eliquis -) 5 mg PO BID [facility] Last Admin: 11/04/16 21:11 Dose: 5 mg Bisacodyl (Dulcolax -) 10 mg PO TID [facility] Last Admin: 11/05/16 06:21 Dose: 10 mg Budesonide/Formoterol Fumarate (Symbicort 160/4.5mcg -) 1 puff IH BID [facility] Last Admin: 11/04/16 21:35 Dose: 1 puff Calcium Carbonate/Cholecalciferol (Os-Andres 500+D -) 1 tab PO BID [facility] Last Admin: 11/04/16 21:11 Dose: 1 tab Cholecalciferol (Vitamin D3 -) 1,000 unit PO BID [facility] Last Admin: 11/04/16 21:12 Dose: 1,000 unit Docusate Sodium (Colace -) 100 mg PO TID [facility] Last Admin: 11/05/16 06:22 Dose: 100 mg Folic Acid (Folic Acid -) 1 mg PO DAILY [facility] Last Admin: 11/04/16 13:54 Dose: 1 mg Dextrose/Sodium Chloride (D5-1/2ns -) 1,000 mls @ 75 mls/hr IV ASDIR [facility] Last Admin: 11/05/16 00:12 Dose: 75 mls/hr Lactic Acid (Lac-Hydrin 12% Cream -) 1 applic TP DAILY [facility] Last Admin: 11/04/16 10:47 Dose: Not Given Levothyroxine Sodium (Synthroid -) 125 mcg PO DAILY@0700 [facility] Last Admin: 11/05/16 06:22 Dose: 125 mcg Megestrol Acetate (Megace Oral Suspension -) 400 mg PO BID [facility] Last Admin: 11/04/16 21:13 Dose: 400 mg Paroxetine HCl (Paxil -) 40 mg PO DAILY [facility] Last Admin: 11/04/16 13:51 Dose: 40 mg Piperacillin Sod/Tazobactam Sod (Zosyn 3.375gm Ivpb (Pre-Docked)) 3.375 gm IVPB Q8H-IV BILL PRN Reason: Protocol Quetiapine Fumarate (Seroquel -) 50 mg PO BID [facility] Last Admin: 11/04/16 21:34 Dose: 50 mg Risperidone (Risperdal -) 2 mg PO HS [facility] Last Admin: 11/04/16 21:11 Dose: 2 mg - Allergies Allergies: Allergies Allergy/AdvReac Type Severity Reaction Status Date / Time guaifenesin [From Robitussin] Allergy Verified 11/03/16 18:29 lactulose Allergy Verified 11/03/16 18:29 levofloxacin [From Levaquin] Allergy Verified 11/03/16 18:29 - Current Living Status Usual Living Arrangement: Assisted Living - Current Mental Status Evaluation Appearance: Disheveled Attitude: Guarded - Affect Affect: Constrictive Appropriateness: Not Appropriate - Mood Mood: Euthymic - Speech/Language Expressive: Delayed - Psychomotor Activity Psychomotor Activity: Slowed - Thought Process Thought Process: Circumstantial - Thought Content Hallucinations: Absent Delusions: Absent - Self Perception Self Perception: Depersonalization - Cognition Attention: Diminished Orientation: Time, Person, Place Memory, Immediate Recall: Impaired Memory, Short Term: 0/3 Memory, Remote: Impaired - Concentration Serial Sevens Intact: No Simple Calculations Intact: No - Abstraction Proverb Interpretation: Impaired Judgement: Minimally Impaired - Insight Insight: Impaired - Impulse Control Impulse Control: Minimally Impaired - Suicidal Ideation Suicidal Ideation: No - Homicidal Ideation Homicidal Ideation: No Assessment/Plan d/c Nortriptyline
[2016-11-05] MEDS: MEGESTROL ACETATE 400 MG/10 ML UNIT DOSE CUP PO SCH ×2 (11:18→22:36)
[2016-11-05] MEDS: FOLIC ACID 1 MG TABLET (FP) PO SCH (11:19)
[2016-11-05] MEDS: CHOLECALCIFEROL (VITAMIN D3) 1,000 UNIT TABLET (FP) PO SCH ×2 (11:19→22:37)
[2016-11-05] MEDS: CALCIUM 500MG/VIT-D 200 UNITS COMBO TABLET (FP) PO SCH ×2 (11:19→22:36)
[2016-11-05] MEDS: PARoxetine HCL 20 MG TABLET (FP) PO SCH (11:19)
[2016-11-05] MEDS: APIXABAN 5 MG TABLET PO SCH ×2 (11:20→22:36)
[2016-11-05] MEDS: QUEtiapine FUMARATE 50 MG TABLET PO SCH ×2 (11:20→22:37)
[2016-11-05] MEDS: BUDESONIDE/FORMETEROL FUMARATE 160/4.5 mcg INHALER IH SCH ×2 (11:20→22:42)
--- NOTE | 2016-11-05 11:22 | CONSULT ---
Consult - text type - Consultation Consultation Note: Neurology The patient is a 61 year old male with a PMHx of Downs syndrome, mitral and tricuspid valve prolapse, Hashimotos disease, who presents to the ED from [facility] with early signs of dementia. The patient was discharged last night after a 2 week admission for constipation. He was sent to [facility] yesterday, but the center told family that they are unable to care for him there. He presented with aggitation and psych consulted and recommended nortryptiline. Patient with urinary tract infection prompting admission and further treatment. - General Chief Complaint: Psychiatric Stated Complaint: BEHAVIORAL ISSUES Past History Anemia: No 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) Thyroid Disease: Yes (HypoTHYROIDISM, [place]) Other medical history: DOWNS SYNDROME. - Surgical History Orthopedic Surgery: Yes (BONE MARROW RT HIP) - Immunization History Immunization Up to Date: Yes - Psycho/Social/Smoking Cessation Hx Anxiety: No Suicidal Ideation: No Smoking History: Never smoked Have you smoked in the past 12 months: No Hx Alcohol Use: No Drug/Substance Use Hx: No Substance Use Type: None Hx Substance Use Treatment: No - Past Medical History Allergies/Adverse Reactions: Allergies Allergy/AdvReac Type Severity Reaction Status Date / Time guaifenesin [From Robitussin] Allergy Verified 11/03/16 18:29 lactulose Allergy Verified 11/03/16 18:29 levofloxacin [From Levaquin] Allergy Verified 11/03/16 18:29 Home Medications: Ambulatory Orders Levothyroxine [Synthroid -] 75 mcg PO DAILY 07/31/15 Ammonium Lactate Cream [Lac-Hydrin 12% Cream -] 1 applic TP DAILY 05/07/16 Quetiapine Fumarate [Seroquel -] 200 mg PO BID 05/08/16 Nutritional Supplement [Ensure] 1 can PO BID 08/29/16 Risperidone [Risperdal] 2 mg PO HS 08/29/16 Megestrol Acetate Oral Susp [Megace Oral Suspension -] 400 mg PO BID cup Calcium Carbonate/Vitamin D3 [Oystercal-D 500 mg-400 Unit Tb] 1 each PO BID Cholecalciferol (Vitamin D3) [Vitamin D3] 1,000 unit PO BID 09/20/16 Linaclotide [Linzess] 145 mcg PO DAILY 09/20/16 Mometasone/Formoterol [Dulera 100 Mcg/5 Mcg Inhaler] 2 inh IH BID 09/20/16 Nortriptyline HCl [Pamelor -] 25 mg PO HS 09/20/16 Paroxetine HCl [Paxil] 40 mg PO DAILY 09/20/16 Folic Acid 1 mg PO DAILY 09/27/16 Apixaban [Eliquis] 5 mg PO BID 10/26/16 Bisacodyl [Bisacodyl -] 10 mg PO TID #90 tablet. 11/02/16 Budesonide/Formeterol Fumarate [SYMBICORT 160/4.5mcg -] 1 puff IH BID #60 inhaler 11/02/16 Docusate Sodium [Colace -] 100 mg PO TID #90 capsule 11/02/16 Review of Systems - Review of Systems Able to Perform ROS?: No (Down's syndrome, dementia) *Physical Exam - Vital Signs Last Vital Signs Temp Pulse Resp BP Pulse Ox 86 20 112/56 98 11/03/16 18:29 11/03/16 18:29 11/03/16 18:29 11/03/16 18:29 - Physical Exam Comments: 11/03/16 19:38 GENERAL: Awake, alert, and fully oriented, in no acute distress HEAD: No signs of trauma EYES: PERRLA, EOMI, sclera anicteric, conjunctiva clear ENT: Auricles normal inspection, hearing grossly normal, nares patent, oropharynx clear without exudates. Moist mucosa NECK: Normal ROM, supple, no lymphadenopathy, JVD, or masses LUNGS: Breath sounds equal, clear to auscultation bilaterally. No wheezes, and no crackles HEART: Regular rate and rhythm, normal S1 and S2, no murmurs, rubs or gallops ABDOMEN: Soft, nontender, normoactive bowel sounds. No guarding, no rebound. No masses EXTREMITIES: Normal range of motion, no edema. No clubbing or cyanosis. No cords, erythema, or tenderness NEUROLOGICAL: Cranial nerves II through XII grossly intact. Normal speech, normal gait SKIN: Warm, Dry, normal turgor, no rashes or lesions noted. CBCD WBC 6.2 K/mm3 (4.0-10.0) 11/05/16 05:40 RBC 3.46 M/mm3 (4.00-5.60) L 11/05/16 05:40 Hgb 10.7 GM/dL (11.7-16.9) L 11/05/16 05:40 Hct 32.5 % (35.4-49) L 11/05/16 05:40 MCV 93.7 fl (80-96) 11/05/16 05:40 MCHC 33.0 g/dl (32.0-35.9) 11/05/16 05:40 RDW 16.3 % (11.9-15.9) H 11/05/16 05:40 Plt Count 196 K/MM3 (134-434) 11/05/16 05:40 MPV 8.5 fl (7.5-11.1) 11/05/16 05:40 CMP Sodium 143 mmol/L (136-145) 11/04/16 06:45 Potassium 3.9 mmol/L (3.5-5.1) 11/04/16 06:45 Chloride 109 mmol/L (98-107) H 11/04/16 06:45 Carbon Dioxide 26 mmol/L (21-32) 11/04/16 06:45 Anion Gap 8 (8-16) 11/04/16 06:45 BUN 15 mg/dL (7-18) 11/04/16 06:45 Creatinine 1.2 mg/dL (0.7-1.3) 11/04/16 06:45 Creat Clearance w eGFR > 60 (>60) 11/04/16 06:45 Calcium 9.9 mg/dL (8.5-10.1) 11/04/16 06:45 Total Bilirubin 0.2 mg/dL (0.2-1.0) 11/04/16 06:45 AST 14 U/L (15-37) L 11/04/16 06:45 ALT 16 U/L (12-78) 11/04/16 06:45 Alkaline Phosphatase 58 U/L (45-117) 11/04/16 06:45 Total Protein 6.1 g/dl (6.4-8.2) L 11/04/16 06:45 Albumin 2.7 g/dl (3.4-5.0) L 11/04/16 06:45 - RADIOLOGY Radiograph Interpretation: Head CT Reported by Dr. Jack Dailey Impression: There are involutional changes. The ventricles are slightly prominent but this could be part of the involutional change. Please note that in general, standard head CT cannot be used in isolation for definitive diagnosis of normal pressure hydrocephalus. No bleed. No mass. No infarct. No shift or herniation. Medical Decision Making 61 year old male with a PMHx of Downs syndrome, mitral and tricuspid valve prolapse, Hashimotos disease, who presents to the ED from [facility] with early signs of dementia. The patient was discharged last night after a 2 week admission for constipation. He was sent to [facility] yesterday, but the center told family that they are unable to care for him there. He presented with aggitation and psych consulted and recommended nortryptiline. Being treated for UTI Question of NPH but his cognitive limitation are 2/2 Down syndrome. Ventricular dilation consistent with cerebral atrophy noted. Would not suggest pursuing shunt in this patient. Continue medical mgmt for underlying infection Patient's behavior has been a challenge for years that I've seen him in the office
--- NOTE | 2016-11-05 16:14 | EKG ---
Test Reason : Blood Pressure : / mmHG Vent. Rate : 096 BPM Atrial Rate : 096 BPM P-R Int : 128 ms QRS Dur : 090 ms QT Int : 338 ms P-R-T Axes : 055 058 043 degrees QTc Int : 427 ms SINUS RHYTHM WITH PREMATURE ATRIAL COMPLEXES POSSIBLE LEFT ATRIAL ENLARGEMENT BORDERLINE ECG WHEN COMPARED WITH ECG OF 31-JUL-2015 16:58, PREMATURE ATRIAL COMPLEXES ARE NOW PRESENT Confirmed by ORALIA BRITT, ELAN ([id number]) on 11/05/2016 4:14:25 PM Referred By: Confirmed By:ELAN BARTON MD
--- NOTE | 2016-11-05 16:25 | CONSULT ---
Consult Consult Specialty:: infectious diseases Reason for Consultation:: fever,uti - History of Present Illness Chief Complaint: fever History of Present Illness: 61 year old male with a PMHx of Downs syndrome, mitral and tricuspid valve prolapse, Hashimotos disease, who presents to the ED from [facility] . The patient was discharged last night after a 2 week admission for constipation. He was sent to [facility] , but the center told family that they are unable to care for him there. He presented with aggitation and psych consulted and recommended nortryptiline. Patient with urinary tract infection prompting admission and further treatment. patient currently stable consultants note and primary care note noted patient is no condition to give history - History Source History Provided By: Medical Record Limitations to Obtaining History: Clinical Condition - Past Medical History MARKET RISK SPECIALIST: Yes: Dementia, Other (Dpwn's syndrome) Gastrointestinal: Yes: Constipation, Other (Fecal impaction) Musculoskeletal: Yes: Other (Spinal stenosis) - Past Surgical History Past Surgical History: Yes: Hernia Repair (umbilical) - Alcohol/Substance Use Hx Alcohol Use: No - Smoking History Smoking history: Never smoked Have you smoked in the past 12 months: No - Social History Usual Living Arrangement: Assisted Living Home Medications - Allergies Allergies/Adverse Reactions: Allergies Allergy/AdvReac Type Severity Reaction Status Date / Time guaifenesin [From Robitussin] Allergy Verified 11/03/16 18:29 lactulose Allergy Verified 11/03/16 18:29 levofloxacin [From Levaquin] Allergy Verified 11/03/16 18:29 - Home Medications Home Medications: Ambulatory Orders Levothyroxine [Synthroid -] 75 mcg PO DAILY 07/31/15 Ammonium Lactate Cream [Lac-Hydrin 12% Cream -] 1 applic TP DAILY 05/07/16 Quetiapine Fumarate [Seroquel -] 200 mg PO BID 05/08/16 Nutritional Supplement [Ensure] 1 can PO BID 08/29/16 Risperidone [Risperdal] 2 mg PO HS 08/29/16 Megestrol Acetate Oral Susp [Megace Oral Suspension -] 400 mg PO BID cup Calcium Carbonate/Vitamin D3 [Oystercal-D 500 mg-400 Unit Tb] 1 each PO BID Cholecalciferol (Vitamin D3) [Vitamin D3] 1,000 unit PO BID 09/20/16 Linaclotide [Linzess] 145 mcg PO DAILY 09/20/16 Mometasone/Formoterol [Dulera 100 Mcg/5 Mcg Inhaler] 2 inh IH BID 09/20/16 Nortriptyline HCl [Pamelor -] 25 mg PO HS 09/20/16 Paroxetine HCl [Paxil] 40 mg PO DAILY 09/20/16 Folic Acid 1 mg PO DAILY 09/27/16 Apixaban [Eliquis] 5 mg PO BID 10/26/16 Bisacodyl [Bisacodyl -] 10 mg PO TID #90 tablet. 11/02/16 Budesonide/Formeterol Fumarate [SYMBICORT 160/4.5mcg -] 1 puff IH BID #60 inhaler 11/02/16 Docusate Sodium [Colace -] 100 mg PO TID #90 capsule 11/02/16 Review of Systems Unable to obtain ROS, reason: unable to obtain Physical Exam Vital Signs: Vital Signs Temperature 98.5 F 11/05/16 13:58 Pulse Rate 108 H 11/05/16 13:58 Respiratory Rate 20 11/05/16 13:58 Blood Pressure 111/50 11/05/16 13:58 O2 Sat by Pulse Oximetry (%) 95 11/04/16 21:00 Constitutional: Yes: No Distress, Calm HENT: Yes: Atraumatic Neck: Yes: Supple, Trachea Midline Cardiovascular: Yes: Regular Rate and Rhythm, Pulse Irregular Respiratory: Yes: Regular, Poor Air Entry Gastrointestinal: Yes: Normal Bowel Sounds, Soft Musculoskeletal: Yes: WNL Extremities: Yes: WNL Neurological: Yes: Alert, Other Labs: CBC, BMP 11/05/16 05:40 11/04/16 06:45 Imaging - Results Chest X-ray: Report Reviewed, Image Reviewed Cat Scan: Report Reviewed, Image Reviewed Assessment/Plan Problems (1) UTI (urinary tract infection) Code(s): N39.0 - URINARY TRACT INFECTION, SITE NOT SPECIFIED (2) Hypothyroidism Code(s): E03.9 - HYPOTHYROIDISM, UNSPECIFIED (3) Afib Code(s): I48.91 - UNSPECIFIED ATRIAL FIBRILLATION (4) Anemia Code(s): D64.9 - ANEMIA, UNSPECIFIED (5) Constipationn Code(s): K59.00 - CONSTIPATION, UNSPECIFIED Qualifiers: Constipation type: unspecified constipation type Qualified Code(s): K59.00 - Constipation, unspecified (6) Down syndrome Code(s): Q90.9 - DOWN SYNDROME, UNSPECIFIED (7) Unsteady gait Code(s): R26.81 - UNSTEADINESS ON FEET plan patient got zosyn will continue zosyn continue to monitor await for all cx reports
[2016-11-05] MEDS: AMMONIUM LACTATE 12% CREAM 140 GM TUBE TP SCH (17:36)
[2016-11-05] MEDS: PIPERACILLIN/TAZOB 3.375 GM 50 ML IVPB SCH (18:00)
[2016-11-05] MEDS: risperiDONE 1 MG TABLET (FP) PO SCH (22:37)
--- NOTE | 2016-11-05 22:42 | PN ---
Progress Note, Physician History of Present Illness: No new change - Current Medication List Current Medications: Active Medications Acetaminophen (Tylenol -) 650 mg PO Q6H PRN PRN Reason: FEVER OR PAIN Last Admin: 11/05/16 06:21 Dose: 650 mg Apixaban (Eliquis -) 5 mg PO BID [facility] Last Admin: 11/05/16 11:20 Dose: 5 mg Bisacodyl (Dulcolax -) 10 mg PO TID [facility] Last Admin: 11/05/16 14:34 Dose: 10 mg Budesonide/Formoterol Fumarate (Symbicort 160/4.5mcg -) 1 puff IH BID [facility] Last Admin: 11/05/16 11:20 Dose: 1 puff Calcium Carbonate/Cholecalciferol (Os-Andres 500+D -) 1 tab PO BID [facility] Last Admin: 11/05/16 11:19 Dose: 1 tab Cholecalciferol (Vitamin D3 -) 1,000 unit PO BID [facility] Last Admin: 11/05/16 11:19 Dose: 1,000 unit Docusate Sodium (Colace -) 100 mg PO TID [facility] Last Admin: 11/05/16 14:34 Dose: 100 mg Folic Acid (Folic Acid -) 1 mg PO DAILY [facility] Last Admin: 11/05/16 11:19 Dose: 1 mg Dextrose/Sodium Chloride (D5-1/2ns -) 1,000 mls @ 75 mls/hr IV ASDIR [facility] Last Admin: 11/05/16 00:12 Dose: 75 mls/hr Piperacillin Sod/Tazobactam Sod (Zosyn 3.375gm Ivpb (Pre-Docked)) 50 mls @ 100 mls/hr IVPB Q8H-IV BILL PRN Reason: Protocol Last Admin: 11/05/16 18:00 Dose: 100 mls/hr Lactic Acid (Lac-Hydrin 12% Cream -) 1 applic TP DAILY [facility] Last Admin: 11/05/16 17:36 Dose: 1 applic Levothyroxine Sodium (Synthroid -) 125 mcg PO DAILY@0700 [facility] Last Admin: 11/05/16 06:22 Dose: 125 mcg Megestrol Acetate (Megace Oral Suspension -) 400 mg PO BID [facility] Last Admin: 11/05/16 11:18 Dose: 400 mg Paroxetine HCl (Paxil -) 40 mg PO DAILY [facility] Last Admin: 11/05/16 11:19 Dose: 40 mg Quetiapine Fumarate (Seroquel -) 50 mg PO BID [facility] Last Admin: 11/05/16 11:20 Dose: 50 mg Risperidone (Risperdal -) 2 mg PO HS [facility] Last Admin: 11/04/16 21:11 Dose: 2 mg - Objective Vital Signs: Vital Signs Temperature 98.2 F 11/05/16 18:15 Pulse Rate 87 11/05/16 18:15 Respiratory Rate 20 11/05/16 18:15 Blood Pressure 97/59 11/05/16 18:15 O2 Sat by Pulse Oximetry (%) 96 11/05/16 09:00 Constitutional: Yes: Well Nourished Neck: Yes: Supple Cardiovascular: Yes: WNL, Regular Rate and Rhythm Respiratory: Yes: WNL, Regular, CTA Bilaterally Gastrointestinal: Yes: WNL, Normal Bowel Sounds, Soft, Abdomen, Obese Labs: CBC, BMP 11/05/16 05:40 11/04/16 06:45 Problem List - Problems (1) UTI (urinary tract infection) Assessment/Plan: Pt is tachy/hypotensive Sepsis due to UTI BC and urine culture are negative to date Cont IV zosyn ID consult noted Code(s): N39.0 - URINARY TRACT INFECTION, SITE NOT SPECIFIED (2) Hypothyroidism Assessment/Plan: Cont levothyroxine Code(s): E03.9 - HYPOTHYROIDISM, UNSPECIFIED (3) Afib Assessment/Plan: Pt is in NSR Cont eliquis for paroxysmal afib Code(s): I48.91 - UNSPECIFIED ATRIAL FIBRILLATION (4) Anemia Assessment/Plan: Due to chronic disease Code(s): D64.9 - ANEMIA, UNSPECIFIED (5) Constipation Assessment/Plan: Cont present regimen(dulcolax/colace) Code(s): K59.00 - CONSTIPATION, UNSPECIFIED Qualifiers: Constipation type: unspecified constipation type Qualified Code(s): K59.00 - Constipation, unspecified (6) Down syndrome Assessment/Plan: Cont paxil/risperdal Code(s): Q90.9 - DOWN SYNDROME, UNSPECIFIED (7) Unsteady gait Code(s): R26.81 - UNSTEADINESS ON FEET
[2016-11-06] MEDS: PIPERACILLIN/TAZOB 3.375 GM 50 ML IVPB SCH ×3 (01:47→17:04)
[2016-11-06] MEDS: LEVOTHYROXINE NA 125 MCG TABLET (FP) PO SCH (06:42)
[2016-11-06] MEDS: DOCUSATE SODIUM 100 MG CAPSULE (FP) PO SCH ×3 (06:42→21:56)
[2016-11-06] MEDS: BISACODYL 5 MG TABLET.DR (FP) PO SCH ×3 (06:42→21:56)
[2016-11-06] MEDS: DEXTROSE 5%-0.45% SALINE 1,000 ML IV SCH ×2 (06:44→20:14)
[2016-11-06] MEDS ORDERED: PT OWN MED DRAWER 7, Y5N ONE ×4 (09:30→21:44)
[2016-11-06] MEDS: BUDESONIDE/FORMETEROL FUMARATE 160/4.5 mcg INHALER IH SCH ×2 (09:32→21:58)
[2016-11-06] MEDS: AMMONIUM LACTATE 12% CREAM 140 GM TUBE TP SCH (09:32)
[2016-11-06] MEDS: CHOLECALCIFEROL (VITAMIN D3) 1,000 UNIT TABLET (FP) PO SCH ×2 (09:33→21:58)
[2016-11-06] MEDS: MEGESTROL ACETATE 400 MG/10 ML UNIT DOSE CUP PO SCH ×2 (09:33→22:29)
[2016-11-06] MEDS: QUEtiapine FUMARATE 50 MG TABLET PO SCH ×2 (09:33→21:57)
[2016-11-06] MEDS: CALCIUM 500MG/VIT-D 200 UNITS COMBO TABLET (FP) PO SCH ×2 (09:33→21:58)
[2016-11-06] MEDS: FOLIC ACID 1 MG TABLET (FP) PO SCH (09:33)
[2016-11-06] MEDS: PARoxetine HCL 20 MG TABLET (FP) PO SCH (09:33)
[2016-11-06] MEDS: APIXABAN 5 MG TABLET PO SCH ×2 (09:33→21:56)
--- NOTE | 2016-11-06 10:29 | PN ---
Progress Note (short form) - Note Progress Note: Neurology The patient is a 61 year old male with a PMHx of Downs syndrome, mitral and tricuspid valve prolapse, Hashimotos disease, who presents to the ED from [facility] with early signs of dementia. The patient was discharged last night after a 2 week admission for constipation. He was sent to [facility] yesterday, but the center told family that they are unable to care for him there. He presented with aggitation and psych consulted and recommended nortryptiline. Patient with urinary tract infection prompting admission and further treatment. More awake and interactive today. More calm and relaxed, remains on 1:1. Active Medications Acetaminophen (Tylenol -) 650 mg PO Q6H PRN PRN Reason: FEVER OR PAIN Last Admin: 11/05/16 06:21 Dose: 650 mg Apixaban (Eliquis -) 5 mg PO BID [facility] Last Admin: 11/06/16 09:33 Dose: 5 mg Bisacodyl (Dulcolax -) 10 mg PO TID [facility] Last Admin: 11/06/16 06:42 Dose: 10 mg Budesonide/Formoterol Fumarate (Symbicort 160/4.5mcg -) 1 puff IH BID [facility] Last Admin: 11/06/16 09:32 Dose: 1 puff Calcium Carbonate/Cholecalciferol (Os-Andres 500+D -) 1 tab PO BID [facility] Last Admin: 11/06/16 09:33 Dose: 1 tab Cholecalciferol (Vitamin D3 -) 1,000 unit PO BID [facility] Last Admin: 11/06/16 09:33 Dose: 1,000 unit Docusate Sodium (Colace -) 100 mg PO TID [facility] Last Admin: 11/06/16 06:42 Dose: 100 mg Folic Acid (Folic Acid -) 1 mg PO DAILY [facility] Last Admin: 11/06/16 09:33 Dose: 1 mg Dextrose/Sodium Chloride (D5-1/2ns -) 1,000 mls @ 75 mls/hr IV ASDIR [facility] Last Admin: 11/06/16 06:44 Dose: 75 mls/hr Piperacillin Sod/Tazobactam Sod (Zosyn 3.375gm Ivpb (Pre-Docked)) 50 mls @ 100 mls/hr IVPB Q8H-IV BILL PRN Reason: Protocol Last Admin: 11/06/16 09:32 Dose: 100 mls/hr Lactic Acid (Lac-Hydrin 12% Cream -) 1 applic TP DAILY [facility] Last Admin: 11/06/16 09:32 Dose: 1 applic Levothyroxine Sodium (Synthroid -) 125 mcg PO DAILY@0700 [facility] Last Admin: 11/06/16 06:42 Dose: 125 mcg Megestrol Acetate (Megace Oral Suspension -) 400 mg PO BID [facility] Last Admin: 11/06/16 09:33 Dose: 400 mg Paroxetine HCl (Paxil -) 40 mg PO DAILY [facility] Last Admin: 11/06/16 09:33 Dose: 40 mg Quetiapine Fumarate (Seroquel -) 50 mg PO BID [facility] Last Admin: 11/06/16 09:33 Dose: 50 mg Risperidone (Risperdal -) 2 mg PO HS [facility] Last Admin: 11/05/16 22:37 Dose: 2 mg *Physical Exam - Vital Signs Last Vital Signs Temp Pulse Resp BP Pulse Ox 86 20 112/56 98 11/03/16 18:29 11/03/16 18:29 11/03/16 18:29 11/03/16 18:29 GENERAL: Awake, alert, and fully oriented, in no acute distress HEAD: No signs of trauma EYES: PERRLA, EOMI, sclera anicteric, conjunctiva clear ENT: Auricles normal inspection, hearing grossly normal, nares patent, oropharynx clear without exudates. Moist mucosa NECK: Normal ROM, supple, no lymphadenopathy, JVD, or masses LUNGS: Breath sounds equal, clear to auscultation bilaterally. No wheezes, and no crackles HEART: Regular rate and rhythm, normal S1 and S2, no murmurs, rubs or gallops ABDOMEN: Soft, nontender, normoactive bowel sounds. No guarding, no rebound. No masses EXTREMITIES: Normal range of motion, no edema. No clubbing or cyanosis. No cords, erythema, or tenderness NEUROLOGICAL: Cranial nerves II through XII grossly intact. Moving all extremities, sensory, intact, gait deferred SKIN: Warm, Dry, normal turgor, no rashes or lesions noted. CBCD WBC 6.2 K/mm3 (4.0-10.0) 11/05/16 05:40 RBC 3.46 M/mm3 (4.00-5.60) L 11/05/16 05:40 Hgb 10.7 GM/dL (11.7-16.9) L 11/05/16 05:40 Hct 32.5 % (35.4-49) L 11/05/16 05:40 MCV 93.7 fl (80-96) 11/05/16 05:40 MCHC 33.0 g/dl (32.0-35.9) 11/05/16 05:40 RDW 16.3 % (11.9-15.9) H 11/05/16 05:40 Plt Count 196 K/MM3 (134-434) 11/05/16 05:40 MPV 8.5 fl (7.5-11.1) 11/05/16 05:40 CMP Sodium 143 mmol/L (136-145) 11/04/16 06:45 Potassium 3.9 mmol/L (3.5-5.1) 11/04/16 06:45 Chloride 109 mmol/L (98-107) H 11/04/16 06:45 Carbon Dioxide 26 mmol/L (21-32) 11/04/16 06:45 Anion Gap 8 (8-16) 11/04/16 06:45 BUN 15 mg/dL (7-18) 11/04/16 06:45 Creatinine 1.2 mg/dL (0.7-1.3) 11/04/16 06:45 Creat Clearance w eGFR > 60 (>60) 11/04/16 06:45 Calcium 9.9 mg/dL (8.5-10.1) 11/04/16 06:45 Total Bilirubin 0.2 mg/dL (0.2-1.0) 11/04/16 06:45 AST 14 U/L (15-37) L 11/04/16 06:45 ALT 16 U/L (12-78) 11/04/16 06:45 Alkaline Phosphatase 58 U/L (45-117) 11/04/16 06:45 Total Protein 6.1 g/dl (6.4-8.2) L 11/04/16 06:45 Albumin 2.7 g/dl (3.4-5.0) L 11/04/16 06:45 - RADIOLOGY Impression: There are involutional changes. The ventricles are slightly prominent but this could be part of the involutional change. Please note that in general, standard head CT cannot be used in isolation for definitive diagnosis of normal pressure hydrocephalus. No bleed. No mass. No infarct. No shift or herniation. Medical Decision Making 61 year old male with a PMHx of Downs syndrome, mitral and tricuspid valve prolapse, Hashimotos disease, who presents to the ED from [facility] with early signs of dementia. The patient was discharged last night after a 2 week admission for constipation. He was sent to [facility] yesterday, but the center told family that they are unable to care for him there. He presented with aggitation and psych consulted and recommended nortryptiline. Being treated for UTI, on Abx Question of NPH but his cognitive limitation are 2/2 Down syndrome. Ventricular dilation consistent with cerebral atrophy noted. Would not suggest pursuing shunt in this patient. Continue medical mgmt for underlying infection Patient's behavior has been a challenge for years that I've seen him in the office On 1:1 Monitor closely for fall
--- NOTE | 2016-11-06 14:01 | PN ---
Progress Note, Physician History of Present Illness: no new events patient stable - Current Medication List Current Medications: Active Medications Acetaminophen (Tylenol -) 650 mg PO Q6H PRN PRN Reason: FEVER OR PAIN Last Admin: 11/05/16 06:21 Dose: 650 mg Apixaban (Eliquis -) 5 mg PO BID [facility] Last Admin: 11/06/16 09:33 Dose: 5 mg Bisacodyl (Dulcolax -) 10 mg PO TID [facility] Last Admin: 11/06/16 06:42 Dose: 10 mg Budesonide/Formoterol Fumarate (Symbicort 160/4.5mcg -) 1 puff IH BID [facility] Last Admin: 11/06/16 09:32 Dose: 1 puff Calcium Carbonate/Cholecalciferol (Os-Andres 500+D -) 1 tab PO BID [facility] Last Admin: 11/06/16 09:33 Dose: 1 tab Cholecalciferol (Vitamin D3 -) 1,000 unit PO BID [facility] Last Admin: 11/06/16 09:33 Dose: 1,000 unit Docusate Sodium (Colace -) 100 mg PO TID [facility] Last Admin: 11/06/16 06:42 Dose: 100 mg Folic Acid (Folic Acid -) 1 mg PO DAILY [facility] Last Admin: 11/06/16 09:33 Dose: 1 mg Dextrose/Sodium Chloride (D5-1/2ns -) 1,000 mls @ 75 mls/hr IV ASDIR [facility] Last Admin: 11/06/16 06:44 Dose: 75 mls/hr Piperacillin Sod/Tazobactam Sod (Zosyn 3.375gm Ivpb (Pre-Docked)) 50 mls @ 100 mls/hr IVPB Q8H-IV BILL PRN Reason: Protocol Last Admin: 11/06/16 09:32 Dose: 100 mls/hr Lactic Acid (Lac-Hydrin 12% Cream -) 1 applic TP DAILY [facility] Last Admin: 11/06/16 09:32 Dose: 1 applic Levothyroxine Sodium (Synthroid -) 125 mcg PO DAILY@0700 [facility] Last Admin: 11/06/16 06:42 Dose: 125 mcg Megestrol Acetate (Megace Oral Suspension -) 400 mg PO BID [facility] Last Admin: 11/06/16 09:33 Dose: 400 mg Paroxetine HCl (Paxil -) 40 mg PO DAILY [facility] Last Admin: 11/06/16 09:33 Dose: 40 mg Quetiapine Fumarate (Seroquel -) 50 mg PO BID [facility] Last Admin: 11/06/16 09:33 Dose: 50 mg Risperidone (Risperdal -) 2 mg PO HS [facility] Last Admin: 11/05/16 22:37 Dose: 2 mg - Objective Vital Signs: Vital Signs Temperature 98.2 F 11/06/16 13:20 Pulse Rate 69 11/06/16 13:20 Respiratory Rate 18 11/06/16 13:20 Blood Pressure 108/60 11/06/16 13:20 O2 Sat by Pulse Oximetry (%) 97 11/06/16 10:00 Constitutional: Yes: No Distress, Calm Cardiovascular: Yes: Regular Rate and Rhythm Respiratory: Yes: Regular, CTA Bilaterally Gastrointestinal: Yes: Normal Bowel Sounds, Soft Breast(s): Yes: WNL Musculoskeletal: Yes: WNL Neurological: Yes: Alert, Other Labs: CBC, BMP 11/05/16 05:40 11/04/16 06:45 Assessment/Plan Problems (1) UTI (urinary tract infection) Code(s): N39.0 - URINARY TRACT INFECTION, SITE NOT SPECIFIED (2) Hypothyroidism Code(s): E03.9 - HYPOTHYROIDISM, UNSPECIFIED (3) Afib Code(s): I48.91 - UNSPECIFIED ATRIAL FIBRILLATION (4) Anemia Code(s): D64.9 - ANEMIA, UNSPECIFIED (5) Constipationn Code(s): K59.00 - CONSTIPATION, UNSPECIFIED Qualifiers: Constipation type: unspecified constipation type Qualified Code(s): K59.00 - Constipation, unspecified (6) Down syndrome Code(s): Q90.9 - DOWN SYNDROME, UNSPECIFIED (7) Unsteady gait Code(s): R26.81 - UNSTEADINESS ON FEET plan continue abx no new issues await for cx report rest as per primary
--- NOTE | 2016-11-06 21:53 | PN ---
Progress Note, Physician History of Present Illness: No new change - Current Medication List Current Medications: Active Medications Acetaminophen (Tylenol -) 650 mg PO Q6H PRN PRN Reason: FEVER OR PAIN Last Admin: 11/05/16 06:21 Dose: 650 mg Apixaban (Eliquis -) 5 mg PO BID [facility] Last Admin: 11/06/16 09:33 Dose: 5 mg Bisacodyl (Dulcolax -) 10 mg PO TID [facility] Last Admin: 11/06/16 14:07 Dose: 10 mg Budesonide/Formoterol Fumarate (Symbicort 160/4.5mcg -) 1 puff IH BID [facility] Last Admin: 11/06/16 09:32 Dose: 1 puff Calcium Carbonate/Cholecalciferol (Os-Andres 500+D -) 1 tab PO BID [facility] Last Admin: 11/06/16 09:33 Dose: 1 tab Cholecalciferol (Vitamin D3 -) 1,000 unit PO BID [facility] Last Admin: 11/06/16 09:33 Dose: 1,000 unit Docusate Sodium (Colace -) 100 mg PO TID [facility] Last Admin: 11/06/16 14:07 Dose: 100 mg Folic Acid (Folic Acid -) 1 mg PO DAILY [facility] Last Admin: 11/06/16 09:33 Dose: 1 mg Dextrose/Sodium Chloride (D5-1/2ns -) 1,000 mls @ 75 mls/hr IV ASDIR [facility] Last Admin: 11/06/16 20:14 Dose: 75 mls/hr Piperacillin Sod/Tazobactam Sod (Zosyn 3.375gm Ivpb (Pre-Docked)) 50 mls @ 100 mls/hr IVPB Q8H-IV BILL PRN Reason: Protocol Last Admin: 11/06/16 17:04 Dose: 100 mls/hr Lactic Acid (Lac-Hydrin 12% Cream -) 1 applic TP DAILY [facility] Last Admin: 11/06/16 09:32 Dose: 1 applic Levothyroxine Sodium (Synthroid -) 125 mcg PO DAILY@0700 [facility] Last Admin: 11/06/16 06:42 Dose: 125 mcg Megestrol Acetate (Megace Oral Suspension -) 400 mg PO BID [facility] Last Admin: 11/06/16 09:33 Dose: 400 mg Paroxetine HCl (Paxil -) 40 mg PO DAILY [facility] Last Admin: 11/06/16 09:33 Dose: 40 mg Quetiapine Fumarate (Seroquel -) 50 mg PO BID [facility] Last Admin: 11/06/16 09:33 Dose: 50 mg Risperidone (Risperdal -) 2 mg PO HS [facility] Last Admin: 11/05/16 22:37 Dose: 2 mg - Objective Vital Signs: Vital Signs Temperature 98.3 F 11/06/16 17:00 Pulse Rate 96 H 11/06/16 17:00 Respiratory Rate 18 11/06/16 17:00 Blood Pressure 122/70 11/06/16 17:00 O2 Sat by Pulse Oximetry (%) 97 11/06/16 10:00 Constitutional: Yes: Well Nourished Neck: Yes: Supple Cardiovascular: Yes: WNL, Regular Rate and Rhythm Respiratory: Yes: WNL, Regular, CTA Bilaterally Gastrointestinal: Yes: WNL, Normal Bowel Sounds, Soft Labs: CBC, BMP 11/05/16 05:40 11/04/16 06:45 Problem List - Problems (1) UTI (urinary tract infection) Assessment/Plan: DC planning for am Sepsis due to UTI BC and urine culture are negative to date Cont IV zosyn ID consult noted Code(s): N39.0 - URINARY TRACT INFECTION, SITE NOT SPECIFIED (2) Hypothyroidism Assessment/Plan: Cont levothyroxine Code(s): E03.9 - HYPOTHYROIDISM, UNSPECIFIED (3) Afib Code(s): I48.91 - UNSPECIFIED ATRIAL FIBRILLATION (4) Anemia Code(s): D64.9 - ANEMIA, UNSPECIFIED (5) Constipation Code(s): K59.00 - CONSTIPATION, UNSPECIFIED Qualifiers: Constipation type: unspecified constipation type Qualified Code(s): K59.00 - Constipation, unspecified (6) Down syndrome Code(s): Q90.9 - DOWN SYNDROME, UNSPECIFIED (7) Unsteady gait Code(s): R26.81 - UNSTEADINESS ON FEET
[2016-11-06] MEDS: risperiDONE 1 MG TABLET (FP) PO SCH (21:57)
[2016-11-07] MEDS: PIPERACILLIN/TAZOB 3.375 GM 50 ML IVPB SCH ×2 (02:39→09:00)
[2016-11-07] MEDS: DOCUSATE SODIUM 100 MG CAPSULE (FP) PO SCH (06:42)
[2016-11-07] MEDS: LEVOTHYROXINE NA 125 MCG TABLET (FP) PO SCH (06:42)
[2016-11-07] MEDS: BISACODYL 5 MG TABLET.DR (FP) PO SCH (06:42)
[2016-11-07] MEDS ORDERED: PT OWN MED DRAWER 7, Y5N ONE (08:44)
[2016-11-07] MEDS: BUDESONIDE/FORMETEROL FUMARATE 160/4.5 mcg INHALER IH SCH (08:59)
[2016-11-07] MEDS: PARoxetine HCL 20 MG TABLET (FP) PO SCH (09:00)
[2016-11-07] MEDS: CHOLECALCIFEROL (VITAMIN D3) 1,000 UNIT TABLET (FP) PO SCH (09:00)
[2016-11-07] MEDS: MEGESTROL ACETATE 400 MG/10 ML UNIT DOSE CUP PO SCH (09:00)
[2016-11-07] MEDS: APIXABAN 5 MG TABLET PO SCH (09:13)
[2016-11-07] MEDS: CALCIUM 500MG/VIT-D 200 UNITS COMBO TABLET (FP) PO SCH (09:13)
[2016-11-07] MEDS: FOLIC ACID 1 MG TABLET (FP) PO SCH (09:13)
[2016-11-07] MEDS: QUEtiapine FUMARATE 50 MG TABLET PO SCH (09:13)
[2016-11-07] MEDS: AMMONIUM LACTATE 12% CREAM 140 GM TUBE TP SCH (09:14)
[2016-11-07 11:12] VITALS: BP 100/60; PULSE 77; TEMP 97.9
--- NOTE | 2016-11-07 11:15 | PN ---
Progress Note (short form) - Note Progress Note: Neurology The patient is a 61 year old male with a PMHx of Downs syndrome, mitral and tricuspid valve prolapse, Hashimotos disease, who presents to the ED from [facility] with early signs of dementia. The patient was discharged last night after a 2 week admission for constipation. He was sent to [facility] yesterday, but the center told family that they are unable to care for him there. He presented with aggitation and psych consulted and recommended nortryptiline. Patient with urinary tract infection prompting admission and further treatment. More awake and interactive today. For discharge today and in good spirits. Spoke with staff from previously facility at bedside. Active Medications Acetaminophen (Tylenol -) 650 mg PO Q6H PRN PRN Reason: FEVER OR PAIN Last Admin: 11/05/16 06:21 Dose: 650 mg Apixaban (Eliquis -) 5 mg PO BID [facility] Last Admin: 11/07/16 09:13 Dose: 5 mg Bisacodyl (Dulcolax -) 10 mg PO TID [facility] Last Admin: 11/07/16 06:42 Dose: 10 mg Budesonide/Formoterol Fumarate (Symbicort 160/4.5mcg -) 1 puff IH BID [facility] Last Admin: 11/07/16 08:59 Dose: 1 puff Calcium Carbonate/Cholecalciferol (Os-Andres 500+D -) 1 tab PO BID [facility] Last Admin: 11/07/16 09:13 Dose: 1 tab Cholecalciferol (Vitamin D3 -) 1,000 unit PO BID [facility] Last Admin: 11/07/16 09:00 Dose: 1,000 unit Docusate Sodium (Colace -) 100 mg PO TID [facility] Last Admin: 11/07/16 06:42 Dose: 100 mg Folic Acid (Folic Acid -) 1 mg PO DAILY [facility] Last Admin: 11/07/16 09:13 Dose: 1 mg Dextrose/Sodium Chloride (D5-1/2ns -) 1,000 mls @ 75 mls/hr IV ASDIR [facility] Last Admin: 11/06/16 20:14 Dose: 75 mls/hr Piperacillin Sod/Tazobactam Sod (Zosyn 3.375gm Ivpb (Pre-Docked)) 50 mls @ 100 mls/hr IVPB Q8H-IV BILL PRN Reason: Protocol Last Admin: 11/07/16 09:00 Dose: 100 mls/hr Lactic Acid (Lac-Hydrin 12% Cream -) 1 applic TP DAILY [facility] Last Admin: 11/07/16 09:14 Dose: 1 applic Levothyroxine Sodium (Synthroid -) 125 mcg PO DAILY@0700 [facility] Last Admin: 11/07/16 06:42 Dose: 125 mcg Megestrol Acetate (Megace Oral Suspension -) 400 mg PO BID [facility] Last Admin: 11/07/16 09:00 Dose: 400 mg Paroxetine HCl (Paxil -) 40 mg PO DAILY [facility] Last Admin: 11/07/16 09:00 Dose: 40 mg Quetiapine Fumarate (Seroquel -) 50 mg PO BID [facility] Last Admin: 11/07/16 09:13 Dose: 50 mg Risperidone (Risperdal -) 2 mg PO HS [facility] Last Admin: 11/06/16 21:57 Dose: 2 mg *Physical Exam Vital Signs Temperature 97.9 F 11/07/16 10:00 Pulse Rate 77 11/07/16 10:00 Respiratory Rate 20 11/07/16 10:00 Blood Pressure 100/60 11/07/16 10:00 O2 Sat by Pulse Oximetry (%) 97 11/07/16 10:00 GENERAL: Awake, alert, and fully oriented, in no acute distress HEAD: No signs of trauma EYES: PERRLA, EOMI, sclera anicteric, conjunctiva clear ENT: Auricles normal inspection, hearing grossly normal, nares patent, oropharynx clear without exudates. Moist mucosa NECK: Normal ROM, supple, no lymphadenopathy, JVD, or masses LUNGS: Breath sounds equal, clear to auscultation bilaterally. No wheezes, and no crackles HEART: Regular rate and rhythm, normal S1 and S2, no murmurs, rubs or gallops ABDOMEN: Soft, nontender, normoactive bowel sounds. No guarding, no rebound. No masses EXTREMITIES: Normal range of motion, no edema. No clubbing or cyanosis. No cords, erythema, or tenderness NEUROLOGICAL: Cranial nerves II through XII grossly intact. Moving all extremities, sensory, intact, gait deferred SKIN: Warm, Dry, normal turgor, no rashes or lesions noted. CBCD WBC 6.2 K/mm3 (4.0-10.0) 11/05/16 05:40 RBC 3.46 M/mm3 (4.00-5.60) L 11/05/16 05:40 Hgb 10.7 GM/dL (11.7-16.9) L 11/05/16 05:40 Hct 32.5 % (35.4-49) L 11/05/16 05:40 MCV 93.7 fl (80-96) 11/05/16 05:40 MCHC 33.0 g/dl (32.0-35.9) 11/05/16 05:40 RDW 16.3 % (11.9-15.9) H 11/05/16 05:40 Plt Count 196 K/MM3 (134-434) 11/05/16 05:40 MPV 8.5 fl (7.5-11.1) 11/05/16 05:40 CMP Sodium 143 mmol/L (136-145) 11/04/16 06:45 Potassium 3.9 mmol/L (3.5-5.1) 11/04/16 06:45 Chloride 109 mmol/L (98-107) H 11/04/16 06:45 Carbon Dioxide 26 mmol/L (21-32) 11/04/16 06:45 Anion Gap 8 (8-16) 11/04/16 06:45 BUN 15 mg/dL (7-18) 11/04/16 06:45 Creatinine 1.2 mg/dL (0.7-1.3) 11/04/16 06:45 Creat Clearance w eGFR > 60 (>60) 11/04/16 06:45 Calcium 9.9 mg/dL (8.5-10.1) 11/04/16 06:45 Total Bilirubin 0.2 mg/dL (0.2-1.0) 11/04/16 06:45 AST 14 U/L (15-37) L 11/04/16 06:45 ALT 16 U/L (12-78) 11/04/16 06:45 Alkaline Phosphatase 58 U/L (45-117) 11/04/16 06:45 Total Protein 6.1 g/dl (6.4-8.2) L 11/04/16 06:45 Albumin 2.7 g/dl (3.4-5.0) L 11/04/16 06:45 - RADIOLOGY Impression: There are involutional changes. The ventricles are slightly prominent but this could be part of the involutional change. Please note that in general, standard head CT cannot be used in isolation for definitive diagnosis of normal pressure hydrocephalus. No bleed. No mass. No infarct. No shift or herniation. Medical Decision Making 61 year old male with a PMHx of Downs syndrome, mitral and tricuspid valve prolapse, Hashimotos disease, who presents to the ED from [facility] with early signs of dementia. The patient was discharged last night after a 2 week admission for constipation. He was sent to [facility] yesterday, but the center told family that they are unable to care for him there. Improved Question of NPH but his cognitive limitation are 2/2 Down syndrome. Ventricular dilation consistent with cerebral atrophy noted. Would not suggest pursuing shunt in this patient. Patient's behavior has been a challenge for years that I've seen him in the office For discharge today In good spirits
== END 2016-11-07 11:16 | disposition home or self-care (01) | DRG 690 ==
LOC: JER 18:14 → JERBED 23:47 → J5S 11-04 02:35
PROVIDERS: ADMIT Internal Medicine; ATTEND Internal Medicine
DX: N39.0 Urinary tract infection, site not specified (principal); G91.2 (Idiopathic) normal pressure hydrocephalus; E03.9 Hypothyroidism, unspecified; Q90.9 Down syndrome, unspecified; F03.90 Unspecified dementia, unspecified severity, without behavioral disturbance, psychotic disturbance, mood disturbance, and anxiety; D64.9 Anemia, unspecified; K59.00 Constipation, unspecified; R26.81 Unsteadiness on feet; I34.1 Nonrheumatic mitral (valve) prolapse; E06.3 Autoimmune thyroiditis
CPT/HCPCS: 36415; 70450-TC; 71010-TC; 80053; 81003; 81015; 84443; 85025; 87040; 87086; 87186; 93005; 93010; 99282-25; J2794